=== PATIENT | female | born 1965 | race African-American/Black ===

== ENCOUNTER → 2016-06-22 | Outpatient (CLI) | payer MEDICAID, OTHER ==
[~2016-06-22] MED LIST: ALBU8I INH; ALBUAER3 INH; AMBI5TAB PO; CARI350T20 PO; CYMB30CA PO; CYMB60CA PO; DIOV160T60 PO; GABA800T PO; HYDR-3535 PO; HYDR-3583 PO; HYDR12.57 PO; IBUP-232 PO; IBUP600 PO; METO25 PO; PRIL20CA PO; PROP80TA PO; ST JTAB PO; TIZA4 PO; VALS1TAB65 PO
[2016-06-22 12:42] LABS: AUTOMATED NEUTROPHIL # 5.8 TH/MM3 (1.8-7.7); BASOPHIL # 0.1 TH/MM3 (0-0.2); BASOPHIL % 0.7 % (0.0-2.0); EOSINOPHIL # 0.3 TH/MM3 (0-0.4); HEMATOCRIT 37.2 % (35.0-46.0); HEMO FLAGS DIFF FINAL; LYMPH % 34.5 % (9.0-44.0); LYMPHOCYTE # 3.8 TH/MM3 (1.0-4.8); MEAN CELL VOLUME 85.2 FL (80.0-100.0); MEAN CORPUSCULAR HEMOGLOBIN 27.9 PG (27.0-34.0); MEAN CORPUSCULAR HGB CONC 32.8 % (32.0-36.0); MONO % 8.4 % (0.0-8.0); NEUT % 53.4 % (16.0-70.0); PLATELET COUNT 249 TH/MM3 (150-450); RED BLOOD COUNT 4.37 MIL/MM3 (4.00-5.30); RED CELL DISTRIBUTION WIDTH 14.7 % (11.6-17.2); WHITE BLOOD COUNT 10.9 TH/MM3 (4.0-11.0)
[2016-06-22 13:01] LABS: BLOOD, URINE NEG (NEG); COMMENT (UR) CULT NOT INDICATED; CULTURE IF INDICATED CULT NOT INDICATED; GLUCOSE,URINE NEG (NEG); KETONE, URINE NEG (NEG); MUCUS URINE FEW /lpf (OCC); NITRITE,URINE NEG (NEG); PH, URINE 5.5 (5.0-8.5); SQUAMOUS EPITHELIAL CELL URINE 1 /hpf (0-5); URINE COLOR YELLOW (YELLW/STRAW)
--- NOTE | 2016-06-23 23:38 | EKG ---
Date Performed: 06/22/2016 Time Performed: 12:30:44 PTAGE: 51 years EKG: Sinus rhythm MINIMAL VOLTAGE CRITERIA FOR LVH, CONSIDER NORMAL VARIANT NONSPECIFIC T-WAVE ABNORMALITY BORDERLINE ECG NO PREVIOUS TRACING DOCTOR: Myla Aguilera Interpretating Date/Time 06/23/2016 23:34:48
== END ==
LOC: CPRE 11:43
PROVIDERS: ATTEND Orthopaedic Surgery Orthopaedic Surgery of the Spine
DX: Z01.810 Encounter for preprocedural cardiovascular examination (principal); Z01.812 Encounter for preprocedural laboratory examination; Z01.818 Encounter for other preprocedural examination; M50.33 Other cervical disc degeneration, cervicothoracic region; R94.31 Abnormal electrocardiogram [ECG] [EKG]
CPT/HCPCS: 36415; 81001; 85025; 93005

== ENCOUNTER → 2016-08-01 | Outpatient (CLI) | payer MEDICAID ==
[~2016-08-01] MED LIST changes: -ALBU8I INH; -CYMB30CA PO; -DIOV160T60 PO; -IBUP-232 PO; -IBUP600 PO; -METO25 PO; -PRIL20CA PO; -ST JTAB PO; -TIZA4 PO
[2016-08-01 12:22] LABS: AUTOMATED NEUTROPHIL # 5.4 TH/MM3 (1.8-7.7); BASOPHIL # 0.1 TH/MM3 (0-0.2); BASOPHIL % 0.8 % (0.0-2.0); EOSINOPHIL # 0.2 TH/MM3 (0-0.4); EOSINOPHIL % 2.3 % (0.0-4.0); HEMATOCRIT 37.7 % (35.0-46.0); HEMO FLAGS DIFF FINAL; LYMPH % 38.7 % (9.0-44.0); LYMPHOCYTE # 4.1 TH/MM3 (1.0-4.8); MEAN CELL VOLUME 85.9 FL (80.0-100.0); MEAN CORPUSCULAR HEMOGLOBIN 27.8 PG (27.0-34.0); MEAN CORPUSCULAR HGB CONC 32.4 % (32.0-36.0); MONO % 7.1 % (0.0-8.0); NEUT % 51.1 % (16.0-70.0); PLATELET COUNT 255 TH/MM3 (150-450); RED BLOOD COUNT 4.38 MIL/MM3 (4.00-5.30); WHITE BLOOD COUNT 10.6 TH/MM3 (4.0-11.0)
[2016-08-01 13:01] LABS: BACTERIA, URINE RARE /hpf; BLOOD, URINE NEG (NEG); GLUCOSE,URINE NEG (NEG); HYALINE CAST, URINE 1 /lpf (RARE); KETONE, URINE NEG (NEG); MUCUS URINE FEW /lpf (OCC); NITRITE,URINE NEG (NEG); PH, URINE 5.5 (5.0-8.5); SQUAMOUS EPITHELIAL CELL URINE 13 /hpf (0-5); URINE COLOR YELLOW (YELLW/STRAW)
[2016-08-01 13:08] LABS: COMMENT (UR) CULT NOT INDICATED; CULTURE IF INDICATED CULT NOT INDICATED
== END ==
LOC: CPRE 11:22
PROVIDERS: ATTEND Orthopaedic Surgery Orthopaedic Surgery of the Spine
DX: Z01.812 Encounter for preprocedural laboratory examination (principal); Z01.818 Encounter for other preprocedural examination; M50.33 Other cervical disc degeneration, cervicothoracic region
CPT/HCPCS: 36415; 81001; 85025

== ENCOUNTER 2016-08-10 06:39 | Inpatient (IN) | payer MEDICAID, OTHER ==
[2016-08-10] VITALS (9 sets, daily range): BP systolic 102–112; BP diastolic 62–74; PULSE 60–112; RESP 14–18; TEMP 98–98.6; O2SAT 97–100
[~2016-08-10] VITALS: Ht 165.1 cm; Wt 87.4 kg
[~2016-08-10 06:39] MED LIST changes: -HYDR-3583 PO
[2016-08-10] MEDS ORDERED: BUPIVACAINE/EPINEPHRINE 0.25% 50 ML VIAL ONE (07:15)
[2016-08-10] MEDS ORDERED: GENTAMICIN SULFATE 80 MG/2 ML VIAL ONE (07:16)
[2016-08-10] MEDS ORDERED: VANCOMYCIN 1000 MG/NS 250 ML (for <70 kg) IV SCH ×2 (07:30)
[2016-08-10] MEDS ORDERED: ceFAZolin 2 GM PREMIX 50 ML IV SCH (07:30)
[2016-08-10] MEDS ORDERED: POVIDONE IODINE 5% (ANTISEPSIS KIT) 4 APPLICATIONS EACH NARE PRN (07:30)
[2016-08-10] MEDS ORDERED: INSULIN HUMAN REGULAR 1,000 UNITS/10 ML VIAL SQ PRN (07:30)
[2016-08-10] MEDS: POVIDONE IODINE 7.5% SCRUB 118 ML BOTTLE TOPICAL SCH (07:30)
[2016-08-10] MEDS ORDERED: SODIUM CHLORID 0.9% 500 ML IV PRN (07:30)
[2016-08-10] MEDS ORDERED: CHLORHEXIDINE GLUCONATE 2 % 1 PACK (2 CLOTHS) TOPICAL PRN (07:30)
[2016-08-10] MEDS ORDERED: LACTATED RINGER'S 1000 ML IV PRN (07:30)
[2016-08-10] MEDS ORDERED: METOPROLOL TARTRATE 25 MG TAB PO PRN (07:30)
[2016-08-10] MEDS ORDERED: CLINDAMYCIN 600 MG/NS 100 ML IV SCH ×2 (07:45)
[2016-08-10] MEDS ORDERED: SODIUM CHLORIDE 0.9% INJ 100 ML ONE (07:52)
[2016-08-10] MEDS ORDERED: DEXAMETHASONE SOD PHOS 4 MG/ML VIAL ONE ×2 (08:18→15:08)
[2016-08-10] MEDS ORDERED: MIDAZOLAM HCL 2 MG/2 ML VIAL ONE ×2 (08:18→12:12)
[2016-08-10] MEDS ORDERED: ACETAMINOPHEN 1000 MG/100 ML VIAL IV ONE (08:18)
[2016-08-10] MEDS ORDERED: FAMOTIDINE 20 MG/2 ML VIAL ONE (08:19)
[2016-08-10] MEDS ORDERED: fentaNYL CITRATE 250 MCG/5 ML AMP ONE ×2 (08:19→12:12)
[2016-08-10] MEDS ORDERED: ZOLPIDEM TARTRATE 5 MG TAB PO PRN (10:30)
[2016-08-10] MEDS ORDERED: ALBUTEROL SULFATE 90 MCG/ACT HFA 18 GM INHALER INH PRN (10:45)
[2016-08-10] MEDS ORDERED: LACTATED RINGER'S 1000 ML INJ 1,000 ML IV SCH (10:47)
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
[2016-08-10] MEDS ORDERED: HYDR-3583 PO (10:58)
[2016-08-10] MEDS ORDERED: ACETAMINOPHEN/HYDROcodone 325 MG/10 MG TAB PO PRN ×2 (11:00)
[2016-08-10] MEDS ORDERED: BISACODYL 10 MG SUPP RECTAL PRN (11:00)
[2016-08-10] MEDS ORDERED: MORPHINE SULFATE 4 MG/ML INJ IV PUSH PRN (11:00)
[2016-08-10] MEDS ORDERED: ONDANSETRON HCL 4 MG/2 ML VIAL IV PRN (11:00)
[2016-08-10] MEDS ORDERED: SODIUM CHLORIDE 0.9% FLUSH 5 ML FLUSH IVF PRN (11:00)
[2016-08-10] MEDS ORDERED: Post-op Orders (for Pharmacy) MISC XX ONE (11:00)
--- NOTE | 2016-08-10 11:25 | HHI.PR ---
Immediate Post Op Note Procedure Date: Aug 10, 2016 Pre Op Diagnosis: C4-5 Large Extruded HNP Post Op Diagnosis: Same Surgeon: Gary Hunter MD Boatswains Mate(s): Staff Procedure: C4-5 AIF,ACC,ASI Findings: C4-5 large extruded hnp Complications: None Estimated blood loss: 25cc for entire case Anesthesia: General Drains: None Patient to: PACU Patient Condition: Good Implant/Devices: SEE IMPLANT LOG (if applicable) Date/Time of Procedure: SEE SURGICAL CARE RECORD Gary Hunter MD Aug 10, 2016 11:25
[2016-08-10] MEDS ORDERED: *LABETALOL HCL 100 MG/20 ML VIAL PERIprocedural Use ONLY ONE (11:40)
[2016-08-10] MEDS ORDERED: *ENALAPRILAT 1.25 MG/ML VIAL PERIprocedural Use ONLY ONE (11:40)
[2016-08-10] MEDS ORDERED: NALOXONE HCL 0.4 MG/ML AMP ONE (11:42)
[2016-08-10] MEDS ORDERED: DO NOT ADM ANY ANTICOAGULANT DRUGS PRN ×2 (11:45→13:30)
[2016-08-10] MEDS ORDERED: SUCCINYLCHOLINE CHLORIDE 200 MG/10 ML VIAL ONE (11:46)
[2016-08-10] MEDS ORDERED: PROPOFOL 1000 MG/100 ML INJ 100 ML ONE ×3 (11:48→21:31)
[2016-08-10] MEDS ORDERED: NORMOSOL R INJ 1,000 ML IV ONE (12:00)
[2016-08-10] MEDS ORDERED: ePHEDrine/NS 25 MG/5 ML SYR IV ONE (12:00)
[2016-08-10] MEDS ORDERED: PROPOFOL 200 MG/20 ML AMP IV ONE (12:00)
[2016-08-10] MEDS ORDERED: NEOSTIGMINE 3 MG/3 ML SYR IV ONE (12:00)
[2016-08-10] MEDS ORDERED: LACTATED RINGER'S 1000 ML INJ 2,000 ML IV ONE (12:00)
[2016-08-10] MEDS ORDERED: ONDANSETRON HCL 4 MG/2 ML VIAL IV PUSH ONE (12:00)
[2016-08-10] MEDS ORDERED: CLINDAMYCIN PHOS 600 MG/4 ML VIAL ONE (12:55)
[2016-08-10] MEDS: CLINDAMYCIN INJ 600 MG in SODIUM CHLORIDE 0.9% INJ 100 ML IV SCH ×2 (13:00→21:20)
[2016-08-10 14:02] LABS: BLOOD GAS BASE EXCESS 0.5 mmol/L (-2-2); BLOOD GAS CARBOXYHEMOGLOBIN 1.2 % (0-4); BLOOD GAS HCO3 25 mmol/L (22-26); BLOOD GAS METHEMOGLOBIN 0.9 % (0-2); BLOOD GAS O2 HGB SATURATION 96 % (90-100); BLOOD GAS OXYGEN CONTENT 14.9 Vol % (12.0-20.0); BLOOD GAS PCO2 42 mmHg (38-42); BLOOD GAS PO2 120 mmHg (61-120); BLOOD GAS TOTAL HGB 10.9 G/DL (12.0-16.0); CRITICAL VALUE NO; OXYGEN DEVICE VENTILATOR; TEMP CORR TO 98.6
[2016-08-10 14:03] LABS: DRAW SITE LT RADIAL; FIO2 45 %; NUMBER OF ARTERIAL PUNCTURES 1; STAT YES; ULNAR PULSE PRESENT; VENT SETTINGS AC14/500/PEEP5
--- NOTE | 2016-08-10 14:53 | PD.CONS ---
[facility] Service Critical Care Medicine Consult Requested By Dr. Medina Reason for Consult post-operative respiratory insufficiency Primary Care Physician Non-Staff History of Present Illness This is a 51yF who presented for elective C4/5 ACDF. Intra-operatively, she was a moderately difficult intubation with a GlideScope. Post-operatively, she was extubated and taken to PACU where she had acute respiratory distress and hypoxia. It was noted that she had an enlarging anterior neck mass. decision was made to emergently proceed back to OR for re-exploration. LMA was emergently placed due to known difficult airway and once in the OR, fiberoptic through LMA with placement of 7.0 ett. larynx noted to be edematous by anesthesiologist. 150cc hematoma drained from anterior neck and SHAHEEN drain left in the anterior neck. The patient remained intubated and was taken to PACU sedated. When I evaluated the patient in PACU, she was sedated and intubated. The remainder of the history was obtained by the bedside RN and Dr. Medina. Review of Systems ROS Limitations: Clinical Condition, Intubated, Altered Mental Status Past Family Social History Allergies: Coded Allergies: Penicillin (Verified Allergy, Severe, HIVES, SOB, 08/10/16) Darvocet-N 100 (Verified Adverse Reaction, Intermediate, Nausea/Vomiting, 08/10/16) Dilaudid (Verified Adverse Reaction, Intermediate, Itching, 08/10/16) Flexeril (Verified Adverse Reaction, Intermediate, Itching, 08/10/16) Ultram (Verified Adverse Reaction, Intermediate, ITCHING, 08/10/16) Past Medical History Hypertension Asthma TIA in 2006 Back pain Neck pain GERD Depression Past Surgical History delivery Reported Medications Valsartan HCTZ Lortab Soma Albuterol Propranolol Duloxetine Gabapentin Active Ordered Medications See MAR Family History Reviewed in the chart and found to be noncontributory to her acute illness. The patient is unable to provide additional information. Social History 2.5 pack per day smoker 10 years. Quit 1 week ago. Physical Exam Vital Signs Vital Signs Date Time Temp Pulse Resp B/P Pulse Ox O2 Delivery O2 Flow Rate FiO2 08/10/16 13:33 98 50 08/10/16 11:49 61 12 194/106 95 Nasal Cannula 4 08/10/16 11:45 79 12 155/100 83 Nasal Cannula 4 08/10/16 11:30 64 12 155/100 90 Nasal Cannula 4 08/10/16 11:25 97.7 59 12 112/64 91 Nasal Cannula 4 08/10/16 07:25 98.1 60 18 111/74 97 Physical Exam GENERAL: Middle-aged female, sitting in bed, intubated, sedated. HEENT: Normocephalic. Atraumatic. Pupils equal, round, reactive, conjugate. Mucous members are moist. Mild amount of oropharyngeal edema. NECK: 7.[address] There is an incision over the anterior neck with a SHAHEEN drain with a mild amount of sanguinous output. Anterior neck is supple. C- collar is in place CHEST: Equal chest rise. Clear to auscultation bilaterally. CARDIOVASCULAR: Normal rate, regular rhythm. No appreciable murmurs. ABDOMEN: Soft, obese, nontender, nondistended. No guarding. MUSCULOSKELETAL: Distal pulses 2+. No peripheral edema. NEUROLOGICAL: RASS -3. Briskly purposeful. Does not follow commands. Sedated under anesthesia. Laboratory Laboratory Tests Test 08/10/16 13:55 Blood Gas Puncture Site LT RADIAL Blood Gas Patient Temperature 98.6 Blood Gas HCO3 25 Blood Gas Base Excess 0.5 Blood Gas Oxygen Saturation 96 Arterial Blood pH 7.39 Arterial Blood Partial 42 Pressure CO2 Arterial Blood Partial 120 Pressure O2 Arterial Blood Oxygen Content 14.9 Arterial Blood 1.2 Carboxyhemoglobin Arterial Blood Methemoglobin 0.9 Blood Gas Hemoglobin 10.9 Oxygen Delivery Device VENTILATOR Blood Gas Ventilator Setting AC14/500/PEEP5 Blood Gas Inspired Oxygen 45 Assessment and Plan Assessment and Plan Assessment: This is a 51-year-old female postop day 0 from a C4 5 ACDF course complicated by postoperative respiratory insufficiency requiring emergent re- intubation and re-exploration of the anterior neck for anterior hematoma. She remains critically ill with high concern for airway compromise. Active Problems: Anterior neck hematoma s/p decompression and re-exploration Post-operative pulmonary insufficiency Pharyngeal Edema Laryngeal edema Plan: -- admit to ICU -- head of bed at 60 - 90 degrees at all times -- d/c mivf -- lasix 20mg iv x 1 tonight -- serial decadron q6h -- goal RASS -3. deeply sedated for airway concern. -- will re-evaluate airway in the morning. -- NPO This patient remains critically ill with one or more organ systems which are or may become a threat to life. I have spent in excess of 42 minutes discontinuously in the care and management of this patient. This time is exclusive of procedures, and includes, but is not limited to, evaluation of the patient, review of the medical record, discussions with family, consultants, nursing staff, or respiratory therapy, and documentation in the medical record. Code Status Full Code Jaspreet Lopez MD Aug 10, 2016 14:53
--- NOTE | 2016-08-10 14:56 | RADRPT ---
EXAM DATE/TIME: 08/10/2016 15:05 [facility] COMPARISON: CHEST SINGLE AP, May 07, 2013, 16:31. INDICATIONS : Evaluate central line placement MEDICAL HISTORY : None. SURGICAL HISTORY : None. ENCOUNTER: Initial ACUITY: 1 day PAIN SCORE: Non-responsive. LOCATION: Bilateral chest FINDINGS: Right basilar streakiness is noted consistent with atelectasis and/or infiltrate. Clinical correlati on is recommended. The left lung is clear. The endotracheal tube is in good position 2-3 cm above t he jeremy. The heart is stable. CONCLUSION: 1. Right basilar streakiness consistent with atelectasis and/or infiltrate. Clinical correlation is recommended. 2. Endotracheal tube in good position 2-3 cm above the jeremy. Evan Gonzalez MD on August 10, 2016 at 14:52 Board Certified Radiologist. This report was verified electronically.
[2016-08-10] MEDS: DEXAMETHASONE SOD PHOS 4 MG/ML VIAL IV SCH ×2 (15:00→21:21)
--- NOTE | 2016-08-10 15:07 | RADRPT ---
EXAM DATE/TIME: 08/10/2016 10:48 [facility] COMPARISON: No previous studies available for comparison. INDICATIONS : Cervical 4-5 fusion MEDICAL HISTORY : None. SURGICAL HISTORY : None. ENCOUNTER: Initial ACUITY: 1 day PAIN SCORE: Non-responsive. LOCATION: Bilateral C-spine. FINDINGS: Surgical screws traverse the bodies of C4 and C5 with a plate placed anteriorly and evidence for ante rior fusion. CONCLUSION: Intact immediate postsurgical changes. Saundra Moss MD on August 10, 2016 at 15:05 Board Certified Radiologist. This report was verified electronically.
[2016-08-10] MEDS: fentaNYL DRIP 250 ML IV SCH (15:43)
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
[2016-08-10] MEDS: GABAPENTIN 400 MG CAP PO SCH (17:15)
[2016-08-10] MEDS: SODIUM CHLORIDE 0.9% FLUSH 5 ML FLUSH IVF SCH (21:00)
[2016-08-10] MEDS ORDERED: PROPRANOLOL HCL 80 MG TAB PO SCH (21:00)
[2016-08-10] MEDS ORDERED: FUROSEMIDE 20 MG/2 ML VIAL IV PUSH ONE (21:00)
[2016-08-11] VITALS (18 sets, daily range): BP systolic 87–121; BP diastolic 54–75; PULSE 64–88; RESP 14–28; TEMP 97.2–98.4; O2SAT 92–100
[2016-08-11] MEDS: CLINDAMYCIN INJ 600 MG in SODIUM CHLORIDE 0.9% INJ 100 ML IV SCH (02:40)
[2016-08-11] MEDS: DEXAMETHASONE SOD PHOS 4 MG/ML VIAL IV SCH ×4 (02:41→21:20)
[2016-08-11] MEDS: PROPOFOL 1000 MG/100 ML IV SCH ×3 (02:41→10:55)
[2016-08-11] MEDS: fentaNYL DRIP 250 ML IV SCH ×2 (04:05→10:53)
[2016-08-11 04:35] LABS: HEMATOCRIT 30.2 % (35.0-46.0); MEAN CELL VOLUME 84.6 FL (80.0-100.0); MEAN CORPUSCULAR HEMOGLOBIN 28.1 PG (27.0-34.0); MEAN CORPUSCULAR HGB CONC 33.3 % (32.0-36.0); PLATELET COUNT 211 TH/MM3 (150-450); RED BLOOD COUNT 3.57 MIL/MM3 (4.00-5.30); REVIEW FLAG FINAL; WHITE BLOOD COUNT 16.4 TH/MM3 (4.0-11.0)
[2016-08-11 04:59] LABS: BICARBONATE 26.6 MEQ/L (21.0-32.0); POTASSIUM 3.2 MEQ/L (3.5-5.1)
[2016-08-11] MEDS ORDERED: FUROSEMIDE 40 MG/4 ML VIAL IV PUSH ONE (07:00)
[2016-08-11] MEDS: POVIDONE IODINE 7.5% SCRUB 118 ML BOTTLE TOPICAL SCH (07:30)
--- NOTE | 2016-08-11 07:51 | PD.ORT.PN ---
Subjective Subjective Remarks Patient is intubated and sedated. Nursing staff state when sedation is diminished she does respond to commands and mobilize all 4 limbs appropriately. Otherwise, uneventful evening. Nursing staff had no other concerns. Objective Vitals Vital Signs Date Time Temp Pulse Resp B/P Pulse Ox O2 Delivery O2 Flow Rate FiO2 08/11/16 06:00 73 08/11/16 04:10 100 40 08/11/16 04:00 76 08/11/16 04:00 40 08/11/16 04:00 97.8 76 14 96/55 100 08/11/16 02:00 80 08/11/16 00:30 100 40 08/11/16 00:00 82 08/11/16 00:00 40 08/11/16 00:00 97.7 82 14 121/69 100 08/10/16 22:00 86 08/10/16 20:30 100 40 08/10/16 20:00 40 08/10/16 20:00 98.6 112 14 112/71 100 08/10/16 20:00 112 08/10/16 19:00 100 Mechanical Ventilator 40 08/10/16 18:00 85 08/10/16 16:15 Mechanical Ventilator 40 08/10/16 16:15 82 08/10/16 16:15 98.0 82 14 102/62 100 08/10/16 16:05 99 100 08/10/16 15:45 83 14 104/69 98 Mechanical Ventilator 45 08/10/16 15:42 98 45 08/10/16 15:30 82 14 93/66 98 Mechanical Ventilator 45 08/10/16 15:30 45 08/10/16 15:15 78 14 102/72 98 Mechanical Ventilator 45 08/10/16 15:00 98.0 82 14 126/81 98 Mechanical Ventilator 45 08/10/16 15:00 98.0 08/10/16 14:45 84 14 122/80 98 Mechanical Ventilator 45 08/10/16 14:30 45 08/10/16 14:30 75 14 126/80 98 Mechanical Ventilator 45 08/10/16 14:30 97.2 08/10/16 14:15 97.2 81 14 123/71 98 Mechanical Ventilator 45 08/10/16 14:00 74 14 109/71 97 Mechanical Ventilator 45 08/10/16 13:45 77 14 113/64 98 Mechanical Ventilator 45 08/10/16 13:33 98 50 08/10/16 13:25 45 08/10/16 13:25 96.2 08/10/16 13:23 96.2 86 14 108/71 98 Mechanical Ventilator 45 08/10/16 11:49 61 12 194/106 95 Nasal Cannula 4 08/10/16 11:45 79 12 155/100 83 Nasal Cannula 4 08/10/16 11:30 64 12 155/100 90 Nasal Cannula 4 08/10/16 11:25 97.7 59 12 112/64 91 Nasal Cannula 4 I/O 08/10/16 08/10/16 08/10/16 08/11/16 08/11/16 08/11/16 07:00 15:00 23:00 07:00 15:00 23:00 Intake Total 2100 ml 403 ml 426 ml Output Total 750 ml 640 ml 360 ml Balance 1350 ml -237 ml 66 ml Intake IV Total 50 ml 403 ml 426 ml Other 2050 ml Output Urine Total 575 ml 600 ml 350 ml Stool Total 0 ml 0 ml Drainage Total 40 ml 10 ml Estimated Blood Loss 175 ml Result Diagram: 08/11/16 0402 08/11/16 0402 Procedures ACDF C45, rsxn central HNP Objective Remarks Patient in bed Intubated/sedated VSS C/S Dressing and drain in place, mild soft tissue swelling, no erythema Unable to perform motor and sensory exam +nvi UE and LE bilat Assessment & Plan Ortho Post Op Day #: 1 Problem List: (1) Cervical spinal stenosis (2) Cervical cord compression with myelopathy Assessment and Plan pod#1 s/p ACDF C45, bone graft pod#1 immediate return to OR, Intubation and Exploration small postoperative cervical hematoma with laryngeal spasm D/C SHAHEEN drain Ok to redress cervical incision Planned extubation later today. Cervical collar coldfusion. Ok to remove for dressing changes / hygiene. Decadron 6mg followed by 4mg. Will follow. Hold discharge until pulmonary function stable. If stable, d/c likely Sat or Sun. Krystyna March Aug 11, 2016 07:51
[2016-08-11] MEDS ORDERED: POTASSIUM CHLOR 40 MEQ PREMIX 100 ML IV PRN ×2 (08:00)
[2016-08-11] MEDS ORDERED: MAGNESIUM SULFATE INJ 2 GM in SODIUM CHLORIDE 0.9% INJ 96 ML IV PRN (08:00)
[2016-08-11] MEDS ORDERED: POTASSIUM PHOSPHATE MONOBASIC 500 MG TAB PO PRN (08:00)
[2016-08-11] MEDS ORDERED: MAGNESIUM SULFATE INJ 4 GM in SODIUM CHLORIDE 0.9% INJ 92 ML IV PRN (08:00)
[2016-08-11] MEDS ORDERED: POTASSIUM CHLOR 20 MEQ PREMIX 100 ML IV PRN ×2 (08:00)
[2016-08-11] MEDS ORDERED: SODIUM PHOSPHATE INJ 30 MMOL in SODIUM CHLOR 0.9% 250 ML INJ 240 ML IV PRN (08:00)
[2016-08-11] MEDS ORDERED: POTASSIUM PHOSPHATE MONOBASIC 500 MG TAB PO/TUBE PRN (08:00)
[2016-08-11] MEDS ORDERED: MAGNESIUM OXIDE 400 MG TAB PO PRN (08:00)
[2016-08-11] MEDS ORDERED: POTASSIUM PHOSPHATE INJ 30 MMOL in SODIUM CHLOR 0.9% 250 ML INJ 250 ML IV PRN (08:00)
[2016-08-11] MEDS ORDERED: VALSARTAN 160 MG TAB PO SCH (09:00)
[2016-08-11] MEDS: MULTIVITAMINS/MINERALS THERAPEUTIC TAB PO SCH ×2 (09:00→21:20)
[2016-08-11] MEDS: DULoxetine HCl DR 60 MG CAP PO SCH (09:00)
[2016-08-11] MEDS ORDERED: HYDROCHLOROTHIAZIDE 12.5 MG CAP PO SCH (09:00)
[2016-08-11] MEDS: SODIUM CHLORIDE 0.9% FLUSH 5 ML FLUSH IVF SCH ×2 (09:00→21:00)
[2016-08-11] MEDS: GABAPENTIN 400 MG CAP PO SCH ×3 (09:00→17:28)
[2016-08-11] MEDS: DOCUSATE SODIUM 100 MG CAP PO SCH ×2 (09:00→21:20)
[2016-08-11] MEDS ORDERED: CHLORHEXIDINE GLUCONATE 2 % 1 PACK (2 CLOTHS)(extra cloths) TOPICAL PRN (11:15)
[2016-08-11] MEDS ORDERED: DEXMEDETOMIDINE INJ 50 ML IV SCH (11:45)
--- NOTE | 2016-08-11 11:49 | HHI.CCPN ---
Subjective Remarks/Hospital Course Hospital Course: This is a 51yF who presented for elective C4/5 ACDF. Intra-operatively, she was a moderately difficult intubation with a GlideScope. Post-operatively, she was extubated and taken to PACU where she had acute respiratory distress and hypoxia. It was noted that she had an enlarging anterior neck mass. decision was made to emergently proceed back to OR for re-exploration. LMA was emergently placed due to known difficult airway and once in the OR, fiberoptic through LMA with placement of 7.0 ett. larynx noted to be edematous by anesthesiologist. 150cc hematoma drained from anterior neck and SHAHEEN drain left in the anterior neck. The patient remained intubated and was taken to PACU sedated. When I evaluated the patient in PACU, she was sedated and intubated. The remainder of the history was obtained by the bedside RN and Dr. Medina. Subjective: 08/11: very awake and alert, despite high dose sedation. has large cuff leak this morning. too agitated for extubation, and before 24h post-reintubation. Objective Vital Signs Date Time Temp Pulse Resp B/P Pulse Ox O2 Delivery O2 Flow Rate FiO2 08/11/16 08:29 97 40 08/11/16 08:00 98.4 88 14 114/75 08/11/16 07:45 Mechanical Ventilator 08/10/16 11:49 4 Intake and Output 08/10/16 08/10/16 08/11/16 08:00 16:00 00:00 Intake Total 2100 ml 403 ml Output Total 900 ml 490 ml Balance 1200 ml -87 ml Result Diagram: 08/11/16 0402 08/11/16 0402 Other Results Laboratory Tests Test 08/10/16 13:55 Blood Gas Puncture Site LT RADIAL Blood Gas Patient Temperature 98.6 Blood Gas HCO3 25 mmol/L (22-26) Blood Gas Base Excess 0.5 mmol/L (-2-2) Blood Gas Oxygen Saturation 96 % (90-100) Arterial Blood pH 7.39 (7.380-7.420) Arterial Blood Partial 42 mmHg (38-42) Pressure CO2 Arterial Blood Partial 120 mmHg Pressure O2 (61-120) Arterial Blood Oxygen Content 14.9 Vol % (12.0-20.0) Arterial Blood 1.2 % (0-4) Carboxyhemoglobin Arterial Blood Methemoglobin 0.9 % (0-2) Blood Gas Hemoglobin 10.9 G/DL (12.0-16.0) Oxygen Delivery Device VENTILATOR Blood Gas Ventilator Setting AC14/500/PEEP5 Blood Gas Inspired Oxygen 45 % Objective Remarks GENERAL: Middle-aged female, sitting in bed, intubated, sedated but still with breakthrough agitation HEENT: Normocephalic. Atraumatic. Pupils equal, round, reactive, conjugate. Mucous members are moist. Mild amount of oropharyngeal edema. NECK: 7.[address] There is an incision over the anterior neck with a SHAHEEN drain with a minimal amount of sanguinous output. Anterior neck is supple. C-collar is in place CHEST: Equal chest rise. Clear to auscultation bilaterally. CARDIOVASCULAR: Normal rate, regular rhythm. No appreciable murmurs. ABDOMEN: Soft, obese, nontender, nondistended. No guarding. MUSCULOSKELETAL: Distal pulses 2+. No peripheral edema. NEUROLOGICAL: RASS +1. follows commands x 4. A/P Assessment and Plan Assessment: This is a 51-year-old female postop day 1 from a C4 5 ACDF course complicated by postoperative respiratory insufficiency requiring emergent re- intubation and re-exploration of the anterior neck for anterior hematoma. I cannot extubate her safely this morning on my eval due to her agitation. We will start Precedex and wean off propofol and fentanyl and attempt goal RASS 0. She does have a large cuff leak and on physical exam her anterior neck and hypopharynx have minimal edema, and significantly reduced compared to yesterday. If her agitation is under control, will proceed with extubation. I have talked with Dr. Yeh and we will have trauma surgery on surgical back- up for airway if she has persistent airway compromise. Plan: 1. Anterior neck hematoma s/p decompression and re-exploration -- edema much improved -- lasix 40mg iv x 1 -- continue c-collar. 2. Post-operative pulmonary insufficiency -- SBT this morning. -- cuff leak this morning -- will pursue trial of extubation if her delirium is under control. 3. Agitated Delirium -- start precedex -- wean off propofol, fentanyl -- goal RASS 0. -- may need to add antipsychotic to assist with delirium. 4. Pharyngeal and Laryngeal Edema -- lasix as above -- HOB at 60 - 90 degrees -- scheduled decadron q6h. Dispo: remain in ICU. Jaspreet Lopez MD Aug 11, 2016 11:49
[2016-08-11] MEDS: DEXMEDETOMIDINE 200 MCG in NS 50 ML IV SCH ×2 (13:29→14:37)
[2016-08-11] MEDS ORDERED: ONDANSETRON HCL 4 MG/2 ML VIAL IV PUSH PRN (17:15)
[2016-08-11] MEDS ORDERED: HYDROmorphone HCL PF 1 MG/ML VIAL IV PUSH PRN (17:15)
[2016-08-11] MEDS: CARISOPRODOL 350 MG TAB PO PRN (17:28)
[2016-08-11] MEDS: MUPIROCIN 2% OINT 1 APPLIC/GM SYR NASAL SCH (21:20)
[2016-08-11] MEDS: FAMOTIDINE 20 MG TAB PO SCH (21:20)
[2016-08-11] MEDS: ACETAMINOPHEN 325 MG TAB PO SCH (23:53)
[2016-08-12] VITALS (10 sets, daily range): BP systolic 109–129; BP diastolic 57–71; PULSE 83–98; RESP 14–20; TEMP 96.1–97.8; O2SAT 94–100
[2016-08-12] MEDS: DEXAMETHASONE SOD PHOS 4 MG/ML VIAL IV SCH (03:55)
[2016-08-12] MEDS: CHLORHEXIDINE GLUCONATE 2 % 1 PACK (2 CLOTHS)(taper/protocol) TOPICAL SCH (04:00)
[2016-08-12] MEDS: ACETAMINOPHEN 325 MG TAB PO SCH ×3 (06:31→17:53)
[2016-08-12] MEDS: POVIDONE IODINE 7.5% SCRUB 118 ML BOTTLE TOPICAL SCH (07:30)
[2016-08-12] MEDS: FAMOTIDINE 20 MG TAB PO SCH ×2 (08:07→21:09)
[2016-08-12] MEDS: MULTIVITAMINS/MINERALS THERAPEUTIC TAB PO SCH ×2 (08:07→21:09)
[2016-08-12] MEDS: MUPIROCIN 2% OINT 1 APPLIC/GM SYR NASAL SCH ×2 (08:07→21:09)
[2016-08-12] MEDS: DOCUSATE SODIUM 100 MG CAP PO SCH ×2 (08:07→21:09)
[2016-08-12] MEDS: SODIUM CHLORIDE 0.9% FLUSH 5 ML FLUSH IVF SCH ×2 (08:07→21:00)
[2016-08-12] MEDS: DULoxetine HCl DR 60 MG CAP PO SCH (08:07)
[2016-08-12] MEDS: GABAPENTIN 400 MG CAP PO SCH ×3 (08:07→17:53)
--- NOTE | 2016-08-12 08:55 | PD.ORT.PN ---
Subjective Subjective Remarks Patient was extubated yesterday. Doing much better today. Throat very sore. Little hoarseness. Arms a 'little sore' but no other complaints. No radiating leg symptoms. No other concerns. Questions about discharge. Objective Vitals Vital Signs Date Time Temp Pulse Resp B/P Pulse Ox O2 Delivery O2 Flow Rate FiO2 08/12/16 08:00 87 08/12/16 08:00 97.8 87 14 129/67 97 08/12/16 07:00 97 Nasal Cannula 4.00 08/12/16 06:00 83 08/12/16 04:00 87 08/12/16 04:00 97.7 87 16 116/69 99 08/12/16 02:00 88 08/12/16 00:00 97.7 86 16 110/63 100 08/12/16 00:00 86 08/11/16 22:00 82 08/11/16 21:52 97 Nasal Cannula 08/11/16 20:00 80 08/11/16 20:00 97.8 80 20 111/59 96 08/11/16 19:00 96 Nasal Cannula 4.00 08/11/16 18:00 80 08/11/16 16:00 64 08/11/16 16:00 98.2 64 26 110/58 95 08/11/16 16:00 40 08/11/16 15:55 92 Nasal Cannula 6 08/11/16 14:00 64 08/11/16 12:42 100 100 08/11/16 12:00 97.2 70 28 87/54 100 08/11/16 12:00 70 08/11/16 12:00 40 08/11/16 10:00 73 I/O 08/11/16 08/11/16 08/11/16 08/12/16 08/12/16 08/12/16 07:00 15:00 23:00 07:00 15:00 23:00 Intake Total 426 ml 570 ml 400 ml 100 ml Output Total 360 ml 437 ml 300 ml 350 ml Balance 66 ml 133 ml 100 ml -250 ml Intake Oral 400 ml 100 ml IV Total 426 ml 570 ml Output Urine Total 350 ml 425 ml 300 ml 350 ml Stool Total 0 ml 0 ml Drainage Total 10 ml 12 ml Result Diagram: 08/11/16 0402 08/12/16 0426 Procedures ACDF C45, rsxn central HNP Objective Remarks Sitting up in bed Extubated, in cervicalc collar VSS C/S Dressing c/d/i, drain removed and site clean, mild soft tissue swelling, no erythema +motor biceps, +sens, +nvi LE - + motor at bilat, +nvi Assessment & Plan Ortho Post Op Day #: 2 Problem List: (1) Cervical spinal stenosis (2) Cervical cord compression with myelopathy Assessment and Plan pod#2 s/p ACDF C45, bone graft pod#2 immediate return to OR, Intubation and Exploration small postoperative cervical hematoma with laryngeal spasm Patient extubated yesterday. Throat sore but stable. O2 levels improved. Planning to transfer to 7th floor today. Dry dressing changes daily. Cervical collar shut off worker. Finish Decadron taper. . Hold discharge until pulmonary function stable. If stable, plan on d/c home tomorrow Krystyna Macrh Aug 12, 2016 08:55
[2016-08-12] MEDS: HYDROCHLOROTHIAZIDE 12.5 MG CAP PO SCH (09:32)
[2016-08-12] MEDS: CARISOPRODOL 350 MG TAB PO PRN (21:12)
[2016-08-13] VITALS: BP 100/64; PULSE 87; RESP 20; TEMP 97.9; O2SAT 98
[2016-08-13] MEDS: ACETAMINOPHEN 325 MG TAB PO SCH ×2 (00:28→05:46)
[2016-08-13] MEDS: CHLORHEXIDINE GLUCONATE 2 % 1 PACK (2 CLOTHS)(taper/protocol) TOPICAL SCH (04:00)
[2016-08-13] MEDS: CARISOPRODOL 350 MG TAB PO PRN (05:52)
[2016-08-13] MEDS: MUPIROCIN 2% OINT 1 APPLIC/GM SYR NASAL SCH (07:48)
[2016-08-13] MEDS: FAMOTIDINE 20 MG TAB PO SCH (07:48)
[2016-08-13] MEDS: GABAPENTIN 400 MG CAP PO SCH (07:48)
[2016-08-13] MEDS: SODIUM CHLORIDE 0.9% FLUSH 5 ML FLUSH IVF SCH (07:49)
[2016-08-13] MEDS: DULoxetine HCl DR 60 MG CAP PO SCH (07:49)
[2016-08-13] MEDS: DOCUSATE SODIUM 100 MG CAP PO SCH (07:49)
[2016-08-13] MEDS: HYDROCHLOROTHIAZIDE 12.5 MG CAP PO SCH (07:49)
[2016-08-13] MEDS: MULTIVITAMINS/MINERALS THERAPEUTIC TAB PO SCH (07:49)
[2016-08-13 07:58] VITALS: BP 118/75; PULSE 82; RESP 17; TEMP 97.4; O2SAT 96
--- NOTE | 2016-08-13 08:21 | PD.ORT.PN ---
Subjective Subjective Remarks She continues to improve. Throat a little sore. Hands feeling better. Swalling soft foods easily. No other complaints. ready to d/c home. No concerns of CP, SOB or abd pain. Objective Vitals Vital Signs Date Time Temp Pulse Resp B/P Pulse Ox O2 Delivery O2 Flow Rate FiO2 08/13/16 07:58 97.4 82 17 118/75 96 08/13/16 00:00 97.9 87 20 100/64 98 08/12/16 20:20 98 Nasal Cannula 2.00 08/12/16 20:00 97.6 87 20 121/71 97 08/12/16 16:00 96.1 92 16 120/57 96 08/12/16 12:00 96.3 98 16 109/57 94 08/12/16 11:14 97 Nasal Cannula 2.00 I/O 08/12/16 08/12/16 08/12/16 08/13/16 08/13/16 08/13/16 07:00 15:00 23:00 07:00 15:00 23:00 Intake Total 100 ml 240 ml 960 ml 240 ml Output Total 350 ml Balance -250 ml 240 ml 960 ml 240 ml Intake Oral 100 ml 240 ml 960 ml 240 ml IV Total 0 ml 0 ml Output Urine Total 350 ml Stool Total 0 ml # Voids 2 1 3 # Bowel Movements 0 Result Diagram: 08/11/16 0402 08/12/16 0426 Procedures ACDF C45, rsxn central HNP Objective Remarks Sitting up in bed In cervical collar VSS C/S Dressing c/d/i, mild soft tissue swelling, no erythema +motor biceps, +sens, +nvi LE - + motor at bilat, +nvi Assessment & Plan Ortho Post Op Day #: 3 Problem List: (1) Cervical spinal stenosis (2) Cervical cord compression with myelopathy Assessment and Plan pod#3 s/p ACDF C45, bone graft pod#3 immediate return to OR, Intubation and Exploration small postoperative cervical hematoma with laryngeal spasm Patient continues to improve. Ortho stable. Ok to d/c home today. No HHC needed. Dry dressing changes daily. Cervical collar consulting psychiatrist. PO pain meds as needed. F/U in 2 weeks as scheduled. Krystyna March Aug 13, 2016 08:21
--- NOTE | 2016-08-13 08:32 | HHI.DCPOC ---
Discharge Care Plan Diagnosis: (1) Cervical spinal stenosis (2) Cervical cord compression with myelopathy Your Health Problems Are: Incision/Drains Swelling Goals to Promote Your Health * To prevent worsening of your condition and complications * To maintain your health at the optimal level Directions to Meet Your Goals Take your medications as prescribed Follow your dietary instruction Follow activity as directed Keep your appointments as scheduled Take your immunizations and boosters as scheduled If your symptoms worsen call your PCP, if no PCP go to Urgent Care Center or Emergency Room Smoking is Dangerous to Your Health. Avoid second hand smoke Call the 24-hour hour crisis hotline for domestic abuse at Krystyna March Aug 13, 2016 08:32
[2016-08-13] MEDS ORDERED: VALSARTAN 160 MG TAB PO SCH (09:00)
[2016-08-13 09:27] VITALS: O2SAT 93
--- NOTE | 2016-08-13 17:44 | MP ---
cc: GARY MURPHY M.D. DATE OF SURGERY: 08/10/2016. PREOPERATIVE DIAGNOSIS: C4-5 extruded herniated nucleus pulposis. POSTOPERATIVE DIAGNOSIS: C4-5 extruded herniated nucleus pulposis. OPERATIVE PROCEDURE PERFORMED: C4-5 anterior body fusion; C4-5 Spina ACC anterior cervical cage; C4-5 SpineNet Ricardo anterior spinal instrumentation. SURGEON: Gary Murphy MD. DISTRIBUTION COLLECTION OPERATOR: Staff. SPECIMENS: None. ESTIMATED BLOOD LOSS: 25 cc for the entire case. COMPLICATIONS: None. ANESTHESIA: General. DRAINS: None. CONDITION: Stable. PLAN OF ACTIVITY: Per orders. DESCRIPTION OF THE PROCEDURE IN DETAIL: Dr. Lambert Murphy and myself were co-surgeons on this surgical procedure. Dr. Lambert Murphy performed the neurodecompressive procedure in that he performed a C4-5 anterior cervical diskectomy and anterior decompression using the operative microscope and a left anterior iliac crest bone grafting. I performed the orthopedic fusion and stabilization procedure, which is well-described my operative note. The end plates at C4-5 were prepared for fusion. The hyaline cartilage at the end plates was removed using curettes and burs. A 610 x 12 ACC cage was placed in the interspace. Anterior iliac crest autogenous bone graft was placed under fluoroscopic guidance for interbody fusion. Anterior osteophytes were removed multiple types of rongeurs and a bur. A 23 mm length SpineNet Rauscher anterior spinal instrumentation was used for anterior spinal instrumentation. Two pins were used to hold the plate in appropriate position. This was confirmed under fluoroscopic guidance in the AP and lateral planes. Two screws were used in the vertebral bodies of C4 and C5; these screws were 14 mm in length, 4.0 mm in diameter fixed angle screws. Each screw head was appropriately locked to the plate. The wound was irrigated with copious amounts of sterile saline antibiotic solution. The wound itself was dry. The wound was closed in routine manner with multiple interrupted 3-0 Vicryl sutures. The skin was approximated with running subcuticular 4-0 Vicryl suture. Sterile dressings were applied. The patient placed in a Kelly cervical orthosis. The patient tolerated the procedure well and arrived in the recovery room in stable and satisfactory condition. MD LUCIANO Ruiz/TERESA /11:19 AM /5:32 PM
--- NOTE | 2016-08-13 19:30 | MP ---
cc: ABDULKADIR MURPHY M.D. DATE OF SURGERY August 10, 2016 PREOPERATIVE DIAGNOSES 1. Acute airway edema, postoperative hematoma. 2. Status post C4-5 ACDF. POSTOPERATIVE DIAGNOSES 1. Acute airway edema, postoperative hematoma. 2. Status post C4-5 ACDF. PROCEDURE Neck, anterior cervical spine exploration, evacuation of hematoma, irrigation and debridement. SURGEON Cameron Murphy. POLISHER BALANCE SCREWHEAD Staff. ANESTHESIA General. ESTIMATED BLOOD LOSS 150 mL. DRAINS One. COMPLICATIONS None. PLAN OF ACTIVITY Per orders. INDICATIONS A 51-year-old female earlier today underwent C4-5 anterior cervical diskectomy and fusion. The patient had a total blood loss of 25 mL. At the time of closure the wound itself was dry. In the recovery room, the patient developed an acute airway obstruction. The patient was maintained in airway by Dr. Medina of the Department of Anesthesia with LMA. In the operating room, he was able to use a bronchoscopy and was able to get the bronchoscope into the trachea past the larynx and the vocal cords. The patient then was exchanged with an endotracheal tube. The patient was well oxidized throughout the entire episode. And always maintained a normal blood pressure and heart rate. With this the patient was then positioned on operating room table. The previous dressings were removed. The neck and anterior chest were prepped and draped in usual sterile manner. The incision was reopened. The patient found to have a mild hematoma. This was evacuated. Bipolar anticoagulation was used to coagulate the oozing areas of the longus colli. No obvious bleeders were seen. The wound was irrigated with 1000 mL of sterile saline antibiotic solution. It was closed over 10-Somali Matthew drain. Also a Surgiflo was then used at the area of the incision to help prevent any further easy bleeding. The wound was closed in multiple layers using 3-0 Vicryl suture. Skin approximated with running subcuticular 4-0 Vicryl suture. Dermabond placed over the skin incision. Sterile dressings were applied. The patient placed in [place] cervical orthosis. Of note before the surgery and through the bronchoscope it was noted that the patient was found to have a significant amount of airway edema, much more so than "massive effect" from the hematoma. This was commented by the anesthesiologist. The patient tolerated the procedure well and arrived in the recovery room in stable and satisfactory condition. MD ZAFAR Ruiz /1:11 PM /7:11 PM
== END 2016-08-13 11:43 | disposition home or self-care (01) | DRG 472 ==
LOC: HSDC 06:39 → HSDI 10:51 → N03A 16:13 → N07B 08-12 08:54
PROVIDERS: ADMIT Orthopaedic Surgery Orthopaedic Surgery of the Spine; ATTEND Orthopaedic Surgery Orthopaedic Surgery of the Spine
PROC: 0RB30ZZ Excision of Cervical Vertebral Disc, Open Approach (ICD-10-PCS; 2016-08-10)
PROC: 0QB30ZZ Excision of Left Pelvic Bone, Open Approach (ICD-10-PCS; 2016-08-10)
PROC: 0JC40ZZ Extirpation of Matter from Right Neck Subcutaneous Tissue and Fascia, Open Approach (ICD-10-PCS; 2016-08-10)
PROC: 0RG10A0 Fusion of Cervical Vertebral Joint with Interbody Fusion Device, Anterior Approach, Anterior Column, Open Approach (ICD-10-PCS; principal; 2016-08-10 08:26)
DX: M50.121 Cervical disc disorder at C4-C5 level with radiculopathy (principal); M50.021 Cervical disc disorder at C4-C5 level with myelopathy; J38.4 Edema of larynx; M96.841 Postprocedural hematoma of a musculoskeletal structure following other procedure; M48.02 Spinal stenosis, cervical region; R09.02 Hypoxemia; J45.909 Unspecified asthma, uncomplicated; I10 Essential (primary) hypertension; K21.9 Gastro-esophageal reflux disease without esophagitis; J39.2 Other diseases of pharynx; J38.5 Laryngeal spasm; R41.0 Disorientation, unspecified; R49.0 Dysphonia; F32.9 Major depressive disorder, single episode, unspecified; F17.210 Nicotine dependence, cigarettes, uncomplicated; Y83.8 Other surgical procedures as the cause of abnormal reaction of the patient, or of later complication, without mention of misadventure at the time of the procedure; Y92.234 Operating room of hospital as the place of occurrence of the external cause; Z86.73 Personal history of transient ischemic attack (TIA), and cerebral infarction without residual deficits
CPT/HCPCS: 36600; 71010; 72040; 76000; 80048; 82805; 84132; 85027; 87641; 94002; 94003; 94150; 94640; 94667; 94668; C1713; J0131; J0330; J1100; J1580; J1940; J2250; J2310; J2405; J2710; J3010; J3370; J3480; J7050; J7120

== ENCOUNTER 2017-03-17 09:23 | Emergency (ER) | payer SELFPAY ==
[~2017-03-17] VITALS: Ht 165.1 cm; Wt 85.0 kg
[~2017-03-17 09:23] MED LIST changes: +HYDR-3583 PO
[2017-03-17 09:24] VITALS: BP 142/72; PULSE 92; RESP 18; TEMP 98; O2SAT 99
[2017-03-17] MEDS ORDERED: AZITHROMYCIN PWD FOR SUSP 1 GM PACKET PO ONE (10:45)
--- NOTE | 2017-03-17 10:53 | PD ---
HPI . STD check Chief Complaint: Abdominal Pain Time Seen by Provider: 09:30 Travel History International Travel<30 days: No Contact w/Intl Traveler<30days: No Traveled to known affect area: No History of Present Illness HPI 51-year-old female presents emergency department for evaluation of potential STD. Patient states that her significant other has penile discharge. She states that they have been together for 2 years and she has not had sex with any other person in that time period. She states that he developed penile discharge and stated that he had had been in the past but it was a male yeast infection. Patient states she just wants to know what's going on, denies any itching, vaginal discharge, pelvic pain, abdominal pain, nausea, vomiting, diarrhea. Patient's significant other presents for evaluation simultaneously. PFSH Past Medical History Arthritis: Yes (RHEUMATOID) Asthma: Yes Autoimmune Disease: Yes Blood Disorders: No Anxiety: Yes Cancer: No Cardiovascular Problems: No Cerebrovascular Accident: Yes (TIA) Diabetes: No Diminished Hearing: No Endocrine: No Fibromyalgia: Yes Gastrointestinal Disorders: Yes GERD: Yes Genitourinary: No Headaches: Yes Hepatitis: No Hiatal Hernia: No Hypertension: Yes Immune Disorder: No Implanted Vascular Access Dvce: No Musculoskeletal: Yes (BACK PAIN) Neurologic: Yes (NUMBNESS IN R HAND AND LEG, 2 MINI STROKES) Psychiatric: Yes Reproductive: No Respiratory: Yes (ASTHMA ) Migraines: Yes Thyroid Disease: No PNEUMOCCOCAL Vaccine (Year): 1 ?: Not : 5 Para: 2 Miscarriage: 3 Past Surgical History Abdominal Surgery: No AICD: No Body Medical Devices: NONE Cardiac Surgery: No Section: Yes (X 2) Ear Surgery: No Endocrine Surgery: No Eye Surgery: No Genitourinary Surgery: No Gynecologic Surgery: Yes (2 C SECTION) Joint Replacement: No Oral Surgery: No Pacemaker: No Thoracic Surgery: No Other Surgery: Yes Social History Alcohol Use: No Tobacco Use: Yes (1 PP week) Substance Use: No Allergies-Medications (Allergen,Severity, Reaction): Coded Allergies: penicillin G (Unverified Allergy, Severe, HIVES, SOB, 12/05/16) acetaminophen (Unverified Adverse Reaction, Intermediate, Nausea/Vomiting , 12/05/16) cyclobenzaprine (Unverified Adverse Reaction, Intermediate, Itching, ) hydromorphone (Unverified Adverse Reaction, Intermediate, Itching, 12/05/16 ) propoxyphene (Unverified Adverse Reaction, Intermediate, Nausea/Vomiting, 12/05/16) tramadol (Unverified Adverse Reaction, Intermediate, ITCHING, 12/05/16) *MDRO Multi-Drug Resistant Organism (Verified Adverse Reaction, Unknown, ) 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 Reported Meds & Prescriptions Reported Meds & Active Scripts Active Hydrocodone-Acetaminophen 10-325 mg Tab 1 Tab PO Q4H PRN Reported Ambien (Zolpidem Tartrate) 5 Mg Tab 5 Mg PO HS PRN Gabapentin 800 Mg Tab 800 Mg PO TID Proair Hfa 8.5 GM Inh (Albuterol Sulfate) 90 Mcg/Act Aer 2 Puff INH Q4-6H PRN 108 mcg/actuation Cymbalta DR (Duloxetine HCl) 60 Mg Capdr 60 Mg PO DAILY Propranolol (Propranolol HCl) 80 Mg Tab 80 Mg PO HS Hydrochlorothiazide 12.5 Mg Cap 12.5 Mg PO DAILY Valsartan 160 Mg Tab 160 Mg PO DAILY Review of Systems Except as stated in HPI: all other systems reviewed are Neg Physical Exam Narrative GENERAL: Well-nourished, well-developed 51-year-old female patient in no acute distress. [id number]. SKIN: Focused skin assessment warm/dry. HEAD: Normocephalic. Atraumatic. EYES: No scleral icterus. No injection or drainage. NECK: Supple, trachea midline. No JVD or lymphadenopathy. CARDIOVASCULAR: Regular rate and rhythm without murmurs, gallops, or rubs. RESPIRATORY: Breath sounds equal bilaterally. No accessory muscle use. GENITOURINARY: Normal external genitalia without lesions or erythema. Vaginal vault with small amount of milky frothy drainage, no blood noted. Cervical os was closed. Cervical motion tenderness noted. Uterus nontender and nonenlarged. Bilateral adnexa nontender without masses. GASTROINTESTINAL: Abdomen soft, non-tender, nondistended. MUSCULOSKELETAL: No cyanosis, or edema. BACK: Nontender without obvious deformity. No CVA tenderness. Data Data Last Documented VS Vital Signs Date Time Temp Pulse Resp B/P (MAP) Pulse Ox O2 Delivery O2 Flow Rate FiO2 03/17/17 09:24 98.0 92 18 142/72 (95) 99 Orders Orders Gc And Chlamydia Pcr (03/17/17 09:38) Wet Prep Profile (03/17/17 09:38) Urinalysis - C+S If Indicated (03/17/17 09:38) Azithromycin Powd Pack (Zithromax Powd P (03/17/17 10:45) Gentamicin Inj (Gentamicin Inj) (03/17/17 11:00) Ed Discharge Order (03/17/17 10:54) Urine Culture (03/17/17 10:40) Labs Laboratory Tests Test 03/17/17 10:40 Urine Color YELLOW Urine Turbidity HAZY Urine pH 6.5 Urine Specific [place] 1.021 Urine Protein TRACE mg/dL Urine Glucose (UA) NEG mg/dL Urine Ketones NEG mg/dL Urine Occult Blood MOD Urine Nitrite NEG Urine Bilirubin NEG Urine Urobilinogen LESS THAN 2.0 MG/DL Urine Leukocyte Esterase LARGE Urine RBC 121 /hpf Urine WBC /hpf Urine WBC Clumps MANY Urine Squamous Epithelial Cells 7 /hpf Urine Amorphous Sediment MOD Urine Bacteria OCC /hpf Urine Mucus FEW /lpf Microscopic Urinalysis Comment CULTURE INDICATED Clue Cells (Wet Prep) PRESENT Vaginal Trichomonas (Wet Prep) NONE SEEN Vaginal Yeast (Wet Prep) NONE SEEN MDM Medical Decision Making Medical Screen Exam Complete: Yes Emergency Medical Condition: Yes Differential Diagnosis Differential diagnoses include but not limited to physiological discharge, anxiety, screen for STD, STD Narrative Course 51-year-old female presents emergency department for evaluation due to her significant other having penile discharge. Patient denies any physiological complaints but once reassurance. Pelvic exam performed and milky frothy discharge noted. Mild cervical motion tenderness. Cultures, GC and chlamydia and wet prep obtained and sent to lab. Patient treated empirically with azithromycin and gentamicin IM due to her penicillin allergy. Patient states she had penicillin as a teenager and her throat closed up. Patient is discharged home with instructions to follow-up with her primary care or the health department. Patient states she has an appointment with her primary care for next week. Diagnosis Primary Impression: Screen for sexually transmitted diseases Referrals: Primary Care Physician Patient Instructions: General Instructions, Safe Sex (ED) Additional Instructions: Please return to emergency department if your symptoms return or worsen. Follow up with your primary care provider, philip your appointment for next week Disposition: DISCHARGE HOME Condition: Stable MeiKrystyna Mar 17, 2017 10:53
[2017-03-17] MEDS ORDERED: GENTAMICIN SULFATE 80 MG/2 ML VIAL IM ONE ×2 (11:00→12:00)
[2017-03-17 11:08] LABS: BACTERIA, URINE OCC /hpf; BLOOD, URINE MOD (NEG); GLUCOSE,URINE NEG (NEG); KETONE, URINE NEG (NEG); MUCUS URINE FEW /lpf (OCC); NITRITE,URINE NEG (NEG); PH, URINE 6.5 (5.0-8.5); SQUAMOUS EPITHELIAL CELL URINE 7 /hpf (0-5); URINE COLOR YELLOW (YELLW/STRAW)
[2017-03-17 11:09] LABS: COMMENT (UR) CULTURE INDICATED; CULTURE IF INDICATED CULTURE INDICATED
[2017-03-17 12:46] LABS: CHLAMYDIA PCR NOT DETECTED (NOT DETECT); NEISSERIA PCR DETECTED (NOT DETECT)
== END 2017-03-17 12:13 | disposition home or self-care (01) ==
LOC: NEPD 09:23
DX: Z11.3 Encounter for screening for infections with a predominantly sexual mode of transmission (principal); B96.89 Other specified bacterial agents as the cause of diseases classified elsewhere; M06.9 Rheumatoid arthritis, unspecified; J45.909 Unspecified asthma, uncomplicated; F41.9 Anxiety disorder, unspecified; M79.7 Fibromyalgia; K21.9 Gastro-esophageal reflux disease without esophagitis; I10 Essential (primary) hypertension; Z86.73 Personal history of transient ischemic attack (TIA), and cerebral infarction without residual deficits
CPT/HCPCS: 81001; 87086; 87210; 87491; 87591; 96372; 99285; J1580

== ENCOUNTER 2017-05-28 22:46 | Emergency (ER) | payer SELFPAY ==
[~2017-05-28 22:46] MED LIST changes: -CARI350T20 PO; -HYDR-3535 PO
[2017-05-28 22:50] VITALS: BP 143/86; PULSE 78; RESP 16; TEMP 98.2; O2SAT 100
[2017-05-28] MEDS ORDERED: RESP: ALBUTEROL 2.5 MG/IPRATROPIUM 0.5 MG NEB (SCH) NEB ONE (23:45)
[2017-05-28] MEDS ORDERED: IBUPROFEN 600 MG TAB PO ONE (23:45)
[2017-05-29 00:09] VITALS: O2SAT 100
[2017-05-29] MEDS ORDERED: FAMOTIDINE 20 MG TAB PO ONE (00:45)
[2017-05-29] MEDS ORDERED: ALUMINUM/MAGNESIUM/SIMETH 30 ML CUP PO ONE (00:45)
--- NOTE | 2017-05-29 01:29 | PD ---
HPI . Cold/flu symptoms Chief Complaint: Cold / Flu Symptoms Time Seen by Provider: 23:33 Travel History International Travel<30 days: No Contact w/Intl Traveler<30days: No Traveled to known affect area: No History of Present Illness HPI 52-year-old female notes having mild cough for the past 2-3 days, but started having shaking chills and body aches tonight. Patient has positive ill contacts with flu and also recent upper respiratory infections. Patient denies any production of cough, any documented fever. Denies any leg pain or swelling , or any decrease in exercise tolerance of late. PFSH Past Medical History Narrative Medical Past medical history reviewed Arthritis: Yes (RHEUMATOID) Asthma: Yes Autoimmune Disease: Yes Blood Disorders: No Anxiety: Yes Cancer: No Cardiovascular Problems: No Cerebrovascular Accident: Yes (TIA) Diabetes: No Diminished Hearing: No Endocrine: No Fibromyalgia: Yes Gastrointestinal Disorders: Yes GERD: Yes Genitourinary: No Headaches: Yes Hepatitis: No Hiatal Hernia: No Hypertension: Yes Immune Disorder: No Implanted Vascular Access Dvce: No Musculoskeletal: Yes (BACK PAIN) Neurologic: Yes (NUMBNESS IN R HAND AND LEG, 2 MINI STROKES) Psychiatric: Yes Reproductive: No Respiratory: Yes (ASTHMA ) Migraines: Yes Thyroid Disease: No PNEUMOCCOCAL Vaccine (Year): 1 ?: Not : 5 Para: 2 Miscarriage: 3 Past Surgical History Abdominal Surgery: No AICD: No Body Medical Devices: NONE Cardiac Surgery: No Section: Yes (X 2) Ear Surgery: No Endocrine Surgery: No Eye Surgery: No Genitourinary Surgery: No Gynecologic Surgery: Yes (2 C SECTION) Joint Replacement: No Oral Surgery: No Pacemaker: No Thoracic Surgery: No Other Surgery: Yes (CERVICAL SPINE SURG.) Social History Alcohol Use: No Tobacco Use: Yes (4 CIGS A DAY) Substance Use: No Allergies-Medications (Allergen,Severity, Reaction): Coded Allergies: penicillin G (Unverified Allergy, Severe, HIVES, SOB, 05/28/17) acetaminophen (Unverified Adverse Reaction, Intermediate, Nausea/Vomiting , 05/28/17) cyclobenzaprine (Unverified Adverse Reaction, Intermediate, Itching, ) hydromorphone (Unverified Adverse Reaction, Intermediate, Itching, 05/28/17) propoxyphene (Unverified Adverse Reaction, Intermediate, Nausea/Vomiting, 05/28/17) tramadol (Unverified Adverse Reaction, Intermediate, ITCHING, 05/28/17) *MDRO Multi-Drug Resistant Organism (Verified Adverse Reaction, Unknown, ) 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 Reported Meds & Prescriptions Reported Meds & Active Scripts Active Hydrocodone-Acetaminophen 10-325 mg Tab 1 Tab PO Q4H PRN Reported Ambien (Zolpidem Tartrate) 5 Mg Tab 5 Mg PO HS PRN Gabapentin 800 Mg Tab 800 Mg PO TID Proair Hfa 8.5 GM Inh (Albuterol Sulfate) 90 Mcg/Act Aer 2 Puff INH Q4-6H PRN 108 mcg/actuation Cymbalta DR (Duloxetine HCl) 60 Mg Capdr 60 Mg PO DAILY Propranolol (Propranolol HCl) 80 Mg Tab 80 Mg PO HS Hydrochlorothiazide 12.5 Mg Cap 12.5 Mg PO DAILY Valsartan 160 Mg Tab 160 Mg PO DAILY Narrative Medication Allergies and medications reviewed Review of Systems Except as stated in HPI: all other systems reviewed are Neg General / Constitutional: Positive: Chills, No: Fever Eyes: No: Visual changes HENT: No: Headaches Cardiovascular: No: Chest Pain or Discomfort Respiratory: Positive: Cough, No: Shortness of Breath, Wheezing, Sneezing, Orthopnea, Hemoptysis, Night Sweats, Pleuritic Pain Gastrointestinal: No: Abdominal Pain Genitourinary: No: Dysuria Musculoskeletal: No: Pain Skin: No Rash Neurologic: No: Weakness Psychiatric: No: Depression Endocrine: No: Polydipsia Hematologic/Lymphatic: No: Easy Bruising Physical Exam Narrative GENERAL: Awake and alert oriented 3 no acute distress SKIN: Warm and dry. Color is normal diaphoresis cyanosis or pallor HEAD: Atraumatic. Normocephalic. EYES: Pupils equal and round. No scleral icterus. No injection or drainage. ENT: No nasal bleeding or discharge. Mucous membranes pink and moist. NECK: Trachea midline. No JVD. CARDIOVASCULAR: Regular rate and rhythm. S1-S2 no murmurs rubs or gallops RESPIRATORY: No accessory muscle use. Clear to auscultation. Breath sounds equal bilaterally. Mild prolonged respiratory phase with forced exhalation/ cough only. No rhonchi GASTROINTESTINAL: Abdomen soft, non-tender, nondistended. Hepatic and splenic margins not palpable. MUSCULOSKELETAL: Extremities without clubbing, cyanosis, or edema. No obvious deformities. NEUROLOGICAL: Awake and alert. No obvious cranial nerve deficits. Motor grossly within normal limits. Five out of 5 muscle strength in the arms and legs. Normal speech. PSYCHIATRIC: Appropriate mood and affect; insight and judgment normal. Data Data Last Documented VS Vital Signs Date Time Temp Pulse Resp B/P (MAP) Pulse Ox O2 Delivery O2 Flow Rate FiO2 05/29/17 00:09 100 21 05/28/17 22:50 98.2 78 16 143/86 (105) Orders Orders Influenzae A/B Antigen (05/28/17 23:33) Ibuprofen (Motrin) (05/28/17 23:45) Albuterol-Ipratropium Neb (Duoneb Neb) (05/28/17 23:45) Al-Mag Hy-Si 40-40-4 Mg/Ml Liq (Mag-Al P (05/29/17 00:45) Famotidine (Pepcid) (05/29/17 00:45) MDM Medical Decision Making Medical Screen Exam Complete: Yes Emergency Medical Condition: Yes Medical Record Reviewed: Yes Differential Diagnosis Influenza, upper respiratory infection, bronchitis Narrative Course Patient improved with oral anti-inflammatories and nebulizer treatment. Influenza test negative Diagnosis Primary Impression: Upper respiratory infection Qualified Codes: J06.9 - Acute upper respiratory infection, unspecified Patient Instructions: General Instructions, Upper Respiratory Infection (ED) Additional Instructions: Tylenol/Motrin for aches/chills as directed. Albuterol inhaler 2 puffs every 4 hours for cough/wheezing as needed. Medrol dose leticia as prescribed. Follow-up with your doctor. Return for worsening Scripts Methylprednisolone Dosepak (Medrol Dosepak) 4 Mg Dspk 4 MG PO DIRECTED, #1 DSPK 0 Refills Per Pharmacist direction Prov: Erick Neri MD 05/29/17 Disposition: 01 DISCHARGE HOME Condition: Stable Erick Neri MD May 29, 2017 01:29
[2017-05-29] MEDS ORDERED: predniSONE 20 MG TAB PO ONE (01:30)
[2017-05-29] MEDS ORDERED: MEDR4PAK PO (01:39)
== END 2017-05-29 01:50 | disposition home or self-care (01) ==
LOC: NEPC 22:46
DX: J06.9 Acute upper respiratory infection, unspecified (principal); F17.210 Nicotine dependence, cigarettes, uncomplicated; J45.909 Unspecified asthma, uncomplicated; I10 Essential (primary) hypertension; M79.7 Fibromyalgia
CPT/HCPCS: 87804; 94664; 99283; J7512

== ENCOUNTER 2017-06-28 08:19 | Observation (INO) | payer SELFPAY ==
[~2017-06-28] VITALS: Ht 172.7 cm; Wt 80.0 kg
[2017-06-28] VITALS (9 sets, daily range): BP systolic 101–129; BP diastolic 72–86; PULSE 82–112; RESP 18–20; TEMP 98–98.9; O2SAT 98–100
[~2017-06-28 08:19] MED LIST changes: +MEDR4PAK PO
[2017-06-28] MEDS ORDERED: GADODIAMIDE PF 287 MG/ML 20 ML VIAL (for RAD MRI) IVCONTRAST ONE (08:20)
[2017-06-28] MEDS ORDERED: SODIUM CHLOR 0.9% 1000 ML INJ 1,000 ML IV SCH (08:20)
[2017-06-28] MEDS ORDERED: IOHEXOL 350 MG/ML 10 ML VIAL (for RAD DIAG) IVCONTRAST ONE (08:20)
[2017-06-28] MEDS ORDERED: diphenhydrAMINE HCL 50 MG/ML VIAL IV PUSH ONE (08:30)
[2017-06-28] MEDS ORDERED: LORazepam 2 MG/ML VIAL IV PUSH ONE ×2 (08:30→15:30)
[2017-06-28] MEDS ORDERED: SODIUM CHLORIDE 0.9% FLUSH 10 ML FLUSH IV FLUSH PRN ×2 (08:30→16:30)
[2017-06-28] MEDS ORDERED: HYDROmorphone HCL PF 2 MG/ML VIAL IV PUSH ONE ×2 (08:45→11:45)
[2017-06-28 08:54] LABS: PROTHROMBIN TIME - PATIENT 10.4 SEC (9.8-11.6)
[2017-06-28 08:56] LABS: AUTOMATED NEUTROPHIL # 8.8 TH/MM3 (1.8-7.7); BASOPHIL # 0.1 TH/MM3 (0-0.2); BASOPHIL % 0.8 % (0.0-2.0); EOSINOPHIL # 0.2 TH/MM3 (0-0.4); EOSINOPHIL % 1.2 % (0.0-4.0); HEMATOCRIT 41.1 % (35.0-46.0); LYMPH % 38.2 % (9.0-44.0); LYMPHOCYTE # 6.2 TH/MM3 (1.0-4.8); MEAN CELL VOLUME 82.1 FL (80.0-100.0); MEAN CORPUSCULAR HEMOGLOBIN 27.9 PG (27.0-34.0); MEAN PLATELET VOLUME 7.7 FL (7.0-11.0); MONO % 5.6 % (0.0-8.0); MONOCYTE # 0.9 TH/MM3 (0-0.9); NEUT % 54.2 % (16.0-70.0); PLATELET COUNT 352 TH/MM3 (150-450); RED BLOOD COUNT 5.01 MIL/MM3 (4.00-5.30); RED CELL DISTRIBUTION WIDTH 14.7 % (11.6-17.2); WHITE BLOOD COUNT 16.3 TH/MM3 (4.0-11.0)
[2017-06-28 09:00] LABS: ALBUMIN 4.4 GM/DL (3.4-5.0); ALT (GPT) 28 U/L (10-53); AST (GOT) 25 U/L (15-37); BICARBONATE 28.2 MEQ/L (21.0-32.0); BLOOD UREA NITROGEN 11 MG/DL (7-18); CHLORIDE 97 MEQ/L (98-107); CREATININE 0.91 MG/DL (0.50-1.00); GLOMERULAR FILTRATION RATE 79 ML/MIN (>89); GLUCOSE,RANDOM 86 MG/DL (74-106); SODIUM (NA) 139 MEQ/L (136-145)
--- NOTE | 2017-06-28 09:06 | RADRPT ---
EXAM DATE/TIME: 06/28/2017 08:32 [facility] COMPARISON: CHEST SINGLE AP, August 10, 2016, 15:05. INDICATIONS : Syncope MEDICAL HISTORY : TIA SURGICAL HISTORY : None. ENCOUNTER: Initial ACUITY: 1 day PAIN SCORE: Non-responsive. LOCATION: chest FINDINGS: A single view of the chest demonstrates the lungs to be symmetrically aerated without evidence of mas s, infiltrate or effusion. The cardiomediastinal contours are unremarkable. Osseous structures are intact. CONCLUSION: No acute disease. No significant change has occurred. Henry Moore MD on June 28, 2017 at 9:04 Board Certified Radiologist. This report was verified electronically.
[2017-06-28 09:10] LABS: ALKALINE PHOSPHATASE 125 U/L (45-117); TOTAL BILIRUBIN ADULT 0.4 MG/DL (0.2-1.0); TOTAL PROTEIN 8.5 GM/DL (6.4-8.2); TROPONIN I LESS THAN 0.02 NG/ML (0.02-0.05)
--- NOTE | 2017-06-28 09:10 | RADRPT ---
EXAM DATE/TIME: 06/28/2017 08:36 [facility] COMPARISON: No previous studies available for comparison. INDICATIONS : Altered mental status. Painful right arm contractions. RADIATION DOSE: 42.99 CTDIvol (mGy) MEDICAL HISTORY : Cerebrovascular disease. Hypertension. SURGICAL HISTORY : None. ENCOUNTER: Initial ACUITY: 1 day PAIN SCALE: 7/10 LOCATION: Left arm TECHNIQUE: Volumetric scanning of the cervical spine was performed. Multiplanar reconstructions in the sagittal, coronal and oblique axial planes were performed. Using automated exposure control and adjustment o f the mA and/or kV according to patient size, radiation dose was kept as low as reasonably achievable to obtain optimal diagnostic quality images. DICOM format image data is available electronically f or review and comparison. FINDINGS: VERTEBRAE: Normal vertebral body height. There is evidence of previous anterior cervical fusion C4-5. There are primary bony degenerative changes involving the lower cervical spine especially at C6-7. There is dis c space narrowing at C6-7. No acute bony fractures. The hardware is grossly intact. ALIGNMENT: No evidence of subluxation. C2-C3: The bony spinal canal is normal in size. No evidence of disc bulge or herniation. The neural forami na are bilaterally patent. C3-C4: The bony spinal canal is normal in size. No evidence of disc bulge or herniation. The neural forami na are bilaterally patent. Facet arthritis on the right side. C4-C5: The bony spinal canal is normal in size. No evidence of disc bulge or herniation. The neural forami na are bilaterally patent. C5-C6: The bony spinal canal is normal in size. No evidence of disc bulge or herniation. The neural forami na are bilaterally patent. C6-C7: The bony spinal canal is normal in size. No evidence of disc bulge or herniation. The neural forami na are bilaterally patent. C7-T1: The bony spinal canal is normal in size. No evidence of disc bulge or herniation. The neural forami na are bilaterally patent. CONCLUSION: 1. No acute bony fracture. 2. Anterior cervical fusion at C4-5 3. Primary degenerative changes with disc space narrowing at C6-7 Henry Moore MD on June 28, 2017 at 9:06 Board Certified Radiologist. This report was verified electronically.
[2017-06-28 09:34] LABS: BASOPHILS 1 % (0-2); LYMPHOCYTES 38 % (9-44); MONOCYTES 3 % (0-8); POLYS (SEG NEUTROPHILS) 55 % (16-70)
[2017-06-28] MEDS ORDERED: DIAZEPAM 5 MG TAB PO ONE ×2 (09:45→11:45)
[2017-06-28] MEDS ORDERED: POTA10SO12 PO (10:00)
[2017-06-28] MEDS ORDERED: AMLO5 PO (10:00)
[2017-06-28] MEDS ORDERED: DULO-39 PO (10:00)
[2017-06-28] MEDS ORDERED: ALBU6.7H INH (10:00)
[2017-06-28] MEDS ORDERED: ALPR.5 PO (10:00)
[2017-06-28] MEDS ORDERED: SOMA250T PO (10:00)
[2017-06-28] MEDS ORDERED: HYDR-3288 PO (10:00)
[2017-06-28] MEDS ORDERED: ASPI-516 CHEW (10:00)
--- NOTE | 2017-06-28 10:20 | PD ---
HPI Chief Complaint: Altered Mental Status Time Seen by Provider: 08:20 Travel History International Travel<30 days: No Contact w/Intl Traveler<30days: No Traveled to known affect area: No History of Present Illness HPI Patient is a 52-year-old female presents emergency department with sudden onset left upper extremity and left lower extremity contractures and pain approximately an hour prior to presentation. Patient is a cocaine user and has had CVAs in the past but she has never had these symptoms before. She states the pain is severe, she has not tried anything to alleviate her symptoms prior to arrival. Her right upper and right lower extremities are unaffected and she denies any cocaine use recently. PFSH Past Medical History Arthritis: Yes (RHEUMATOID) Asthma: Yes Autoimmune Disease: Yes Blood Disorders: No Anxiety: Yes Cancer: No Cardiovascular Problems: No Cerebrovascular Accident: Yes (TIA) Diabetes: No Diminished Hearing: No Endocrine: No Fibromyalgia: Yes Gastrointestinal Disorders: Yes GERD: Yes Genitourinary: No Headaches: Yes Hepatitis: No Hiatal Hernia: No Hypertension: Yes Immune Disorder: No Implanted Vascular Access Dvce: No Medical other: No Musculoskeletal: Yes (BACK PAIN) Neurologic: Yes (NUMBNESS IN R HAND AND LEG, 2 MINI STROKES) Psychiatric: Yes Reproductive: No Respiratory: Yes (ASTHMA ) Migraines: Yes Thyroid Disease: No PNEUMOCCOCAL Vaccine (Year): 1 ?: Not : 5 Para: 2 Miscarriage: 3 Past Surgical History Abdominal Surgery: No AICD: No Body Medical Devices: NONE Cardiac Surgery: No Section: Yes (X 2) Ear Surgery: No Endocrine Surgery: No Eye Surgery: No Genitourinary Surgery: No Gynecologic Surgery: Yes (2 C SECTION) Joint Replacement: No Neurologic Surgery: No Oral Surgery: No Pacemaker: No Thoracic Surgery: No Other Surgery: Yes (CERVICAL SPINE SURG.) Social History Alcohol Use: No Tobacco Use: Yes (4 CIGS A DAY) Substance Use: No Allergies-Medications (Allergen,Severity, Reaction): Coded Allergies: penicillin G (Unverified Allergy, Severe, HIVES, SOB, 05/28/17) acetaminophen (Unverified Adverse Reaction, Intermediate, Nausea/Vomiting , 05/28/17) cyclobenzaprine (Unverified Adverse Reaction, Intermediate, Itching, ) hydromorphone (Unverified Adverse Reaction, Intermediate, Itching, 05/28/17) propoxyphene (Unverified Adverse Reaction, Intermediate, Nausea/Vomiting, 05/28/17) tramadol (Unverified Adverse Reaction, Intermediate, ITCHING, 05/28/17) *MDRO Multi-Drug Resistant Organism (Verified Adverse Reaction, Unknown, ) 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 Reported Meds & Prescriptions Reported Meds & Active Scripts Active Medrol Dosepak (Methylprednisolone) 4 Mg Dspk 4 Mg PO DIRECTED Per Pharmacist direction Hydrocodone-Acetaminophen 10-325 mg Tab 1 Tab PO Q4H PRN Reported Xanax (Alprazolam) 0.5 Mg Tab 0.5 Mg PO Q4H PRN Aspirin 81 Mg Chew 81 Mg CHEW DAILY Potassium Chloride Liq (Potassium Chloride) 20 Meq/15 Ml Soln 20 Meq PO BID Proventil Hfa 6.7 GM Inh (Albuterol Sulfate) 90 Mcg/Act Aer 1 Puff INH Q4H PRN Soma (Carisoprodol) 250 Mg Tab 250 Mg PO QID PRN [place] (Hydrocodone-Acetaminophen) 7.5-325 mg Tab 1 Tab PO Q4H PRN Duloxetine DR (Duloxetine HCl) 40 Mg Capdr 40 Mg PO DAILY Norvasc (Amlodipine Besylate) 5 Mg Tab 5 Mg PO DAILY Ambien (Zolpidem Tartrate) 5 Mg Tab 5 Mg PO HS PRN Gabapentin 800 Mg Tab 800 Mg PO TID Proair Hfa 8.5 GM Inh (Albuterol Sulfate) 90 Mcg/Act Aer 2 Puff INH Q4-6H PRN 108 mcg/actuation Cymbalta DR (Duloxetine HCl) 60 Mg Capdr 60 Mg PO DAILY Propranolol (Propranolol HCl) 80 Mg Tab 80 Mg PO HS Hydrochlorothiazide 12.5 Mg Cap 12.5 Mg PO DAILY Valsartan 160 Mg Tab 160 Mg PO DAILY Review of Systems Except as stated in HPI: all other systems reviewed are Neg Physical Exam Narrative GENERAL: Well-developed, well-nourished, appears very uncomfortable. SKIN: Focused skin assessment warm/dry. HEAD: Atraumatic. Normocephalic. EYES: Pupils equal and round. No scleral icterus. No injection or drainage. ENT: No nasal bleeding or discharge. Mucous membranes pink and moist. NECK: Trachea midline. No JVD. CARDIOVASCULAR: Regular rate and rhythm. No murmur appreciated. RESPIRATORY: No accessory muscle use. Clear to auscultation. Breath sounds equal bilaterally. GASTROINTESTINAL: Abdomen soft, non-tender, nondistended. Hepatic and splenic margins not palpable. MUSCULOSKELETAL: No obvious deformities. No clubbing. No cyanosis. No edema. NEUROLOGICAL: Awake and alert. Patient is fairly powerful contraction of her left upper extremity flexion at the elbow and at the wrist, she also has flexion at the knee but this is not as powerful contraction. She is able to follow commands in all 4 extremities, when attempting to straighten her leg or her arm she screams in pain. Cranial nerves II through XII grossly intact. Cerebellar testing at the patella is 2+ and equal bilaterally, testing at the left brachial is limited by the contracture, right brachial normal PSYCHIATRIC: Appropriate mood and affect; insight and judgment normal. Data Data Last Documented VS Vital Signs Date Time Temp Pulse Resp B/P (MAP) Pulse Ox O2 Delivery O2 Flow Rate FiO2 06/28/17 12:56 101 18 121/83 (96) 98 Nasal Cannula 2.00 06/28/17 08:28 98.9 Orders Orders Lorazepam Inj (Ativan Inj) (06/28/17 08:30) Electrocardiogram (06/28/17 08:20) Complete Blood Count With Diff (06/28/17 08:20) Comprehensive Metabolic Panel (06/28/17 08:20) Prothrombin Time / Inr (Pt) (06/28/17 08:20) Act Partial Throm Time (Ptt) (06/28/17 08:20) Troponin I (06/28/17 08:20) Thyroid Stimulating Hormone (06/28/17 08:20) Urinalysis - C+S If Indicated (06/28/17 08:20) Chest, Single Ap (06/28/17 08:20) Ct Brain W/O Iv Contrast(Rout) (06/28/17 08:20) Blood Glucose (06/28/17 08:20) Ecg Monitoring (06/28/17 08:20) Iv Access Insert/Monitor (06/28/17 08:20) Oximetry (06/28/17 08:20) Sodium Chloride 0.9% Flush (Ns Flush) (06/28/17 08:30) Sodium Chlor 0.9% 1000 Ml Inj (Ns 1000 M (06/28/17 08:20) Drug Screen, Random Urine (06/28/17 08:20) Alcohol (Ethanol) (06/28/17 08:20) Ct Cerv Spine W/O Contrast (06/28/17 ) Diphenhydramine Inj (Benadryl Inj) (06/28/17 08:30) Hydromorphone Pf Inj (Dilaudid Pf Inj) (06/28/17 08:45) Diazepam (Valium) (06/28/17 09:45) Cta Thor Abd Aorta W Iv C W3d (06/28/17 ) Urine Culture (06/28/17 09:00) Mri C Spine W&W/O Contrast (06/28/17 ) Iohexol 350 Inj (Omnipaque 350 Inj) (06/28/17 08:20) Diazepam (Valium) (06/28/17 11:45) Hydromorphone Pf Inj (Dilaudid Pf Inj) (06/28/17 11:45) Mri Brain W&W/O Contrast (06/28/17 ) Consult Neurology (06/28/17 ) (Hub Use Only)Inp Phy Cons/Ref (06/28/17 ) Lorazepam Inj (Ativan Inj) (06/28/17 15:30) Gadodiamide Pf Inj (Omniscan Pf Inj) (06/28/17 08:20) Admit Order (Ed Use Only) (06/28/17 ) Labs Laboratory Tests Test 06/28/17 08:30 06/28/17 09:00 White Blood Count 16.3 TH/MM3 Red Blood Count 5.01 MIL/MM3 Hemoglobin 14.0 GM/DL Hematocrit 41.1 % Mean Corpuscular Volume 82.1 FL Mean Corpuscular Hemoglobin 27.9 PG Mean Corpuscular Hemoglobin Concent 34.0 % Red Cell Distribution Width 14.7 % Platelet Count 352 TH/MM3 Mean Platelet Volume 7.7 FL Neutrophils (%) (Auto) 54.2 % Lymphocytes (%) (Auto) 38.2 % Monocytes (%) (Auto) 5.6 % Eosinophils (%) (Auto) 1.2 % Basophils (%) (Auto) 0.8 % Neutrophils # (Auto) 8.8 TH/MM3 Lymphocytes # (Auto) 6.2 TH/MM3 Monocytes # (Auto) 0.9 TH/MM3 Eosinophils # (Auto) 0.2 TH/MM3 Basophils # (Auto) 0.1 TH/MM3 CBC Comment AUTO DIFF Differential Total Cells Counted 100 Neutrophils % (Manual) 55 % Lymphocytes % 38 % Monocytes % 3 % Eosinophils % 3 % Basophils % 1 % Neutrophils # (Manual) 9.0 TH/MM3 Differential Comment FINAL DIFF MANUAL Platelet Estimate NORMAL Platelet Morphology Comment NORMAL Prothrombin Time 10.4 SEC Prothromb Time International Ratio 1.0 RATIO Activated Partial Thromboplast Time 26.5 SEC Blood Urea Nitrogen 11 MG/DL Creatinine 0.91 MG/DL Random Glucose 86 MG/DL Total Protein 8.5 GM/DL Albumin 4.4 GM/DL Calcium Level 10.0 MG/DL Alkaline Phosphatase 125 U/L Aspartate Amino Transf (AST/SGOT) 25 U/L Alanine Aminotransferase (ALT/SGPT) 28 U/L Total Bilirubin 0.4 MG/DL Sodium Level 139 MEQ/L Potassium Level 3.0 MEQ/L Chloride Level 97 MEQ/L Carbon Dioxide Level 28.2 MEQ/L Anion Gap 14 MEQ/L Estimat Glomerular Filtration Rate 79 ML/MIN Troponin I LESS THAN 0.02 NG/ML Thyroid Stimulating Hormone 3rd Gen 0.832 uIU/ML Ethyl Alcohol Level 81 MG/DL Urine Color YELLOW Urine Turbidity CLEAR Urine pH 6.5 Urine Specific [place] 1.016 Urine Protein TRACE mg/dL Urine Glucose (UA) NEG mg/dL Urine Ketones TRACE mg/dL Urine Occult Blood NEG Urine Nitrite NEG Urine Bilirubin NEG Urine Urobilinogen LESS THAN 2.0 MG/DL Urine Leukocyte Esterase MOD Urine RBC 1 /hpf Urine WBC 16 /hpf Urine WBC Clumps FEW Urine Squamous Epithelial Cells 2 /hpf Urine Bacteria FEW /hpf Urine Mucus FEW /lpf Microscopic Urinalysis Comment CATH-CULTURE IND Urine Opiates Screen NEG Urine Barbiturates Screen NEG Urine Amphetamines Screen NEG Urine Benzodiazepines Screen POS Urine Cocaine Screen POS Urine Cannabinoids Screen NEG MDM Medical Decision Making Medical Screen Exam Complete: Yes Emergency Medical Condition: Yes Differential Diagnosis Acute CVA highly unlikely, cervical radiculopathy, spinal cord compression, anxiety, muscle contracture. Narrative Course Patient initially discussed with follow-up, I do not think that her symptoms meet criteria for a stroke alert as I do not think they are being caused by an acute ischemic or hemorrhagic event. A spinal cord compression in theory could lead to some spasm of the left upper extremity. She has a history of a cervical spine fusion in the past, CT head and C-spine were negative, MRI of the head and C-spine has been ordered, the patient has not had any chest pain but it is possible that she is having the severe contracture pains from a dissection a CTA of her chest was negative. Labs were reassuring except for cocaine positive urine. The MRI results are abnormal but are stable: Last 24 hours Impressions Chest X-Ray 06/28/17819 Signed Impressions: Service Date/Time: June 08:32 - CONCLUSION: No acute disease. No significant change has occurred. Henry Moore MD Cervical Spine MRI 06/28/17 Signed Impressions: Service Date/Time: June 11:50 - CONCLUSION: 1. Some bony edema and enhancement throughout the C6 vertebral body and the anterosuperior endplate of C7. Findings could represent bony contusion. Is there a recent history of trauma? No obvious fracture line. 2. Anterior fixation at C4-5 with straightening of the normal lordotic curvature. 3. Right-sided facet hypertrophy at C3-4 with encroachment on the right neural foramina. However, I believe the spinal canal and neural foramina are adequate at this and all remaining cervical levels. Luís Miller MD Cervical Spine CT 06/28/17 Signed Impressions: Service Date/Time: June 08:36 - CONCLUSION: 1. No acute bony fracture. 2. Anterior cervical fusion at C4-5 3. Primary degenerative changes with disc space narrowing at C6-7 Henry Moore MD Brain MRI 06/28/17 Signed Impressions: Service Date/Time: June 11:50 - CONCLUSION: 1. Scattered punctate hemosiderin deposits characteristic of micro-bleeds with associated T2 hyperintense foci throughout a white matter which is most characteristic of hypertensive encephalopathy. 2. Prominent hemosiderin deposit in the left basal ganglia characteristic of a remote hemorrhage. 3. No evidence of acute infarct , hemorrhage, mass effect, edema or enhancing lesions.. Rodolfo Baker MD Aorta CTA 06/28/17 Signed Impressions: Service Date/Time: June 11:04 - CONCLUSION: 1. Mildly ectatic ascending thoracic aorta measuring up to 3.5 cm. Otherwise, the aorta is non-aneurysmal without evidence for dissection or flow-limiting stenosis. 2. Patent proximal visceral arteries. 3. The pulmonary arteries are visualized to the very proximal segmental level without evidence for pulmonary artery embolism. More distal PE cannot be evaluated on this exam. 4. Minimal right lung base atelectasis. 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 Sellers who will admit the patient. Dr. Barrera has been consulted officially as wel. Patient has multiple doses of IV Dilaudid, IV Ativan, Versed p.o., IV Benadryl Diagnosis Primary Impression: Contracture of muscle, left upper arm Additional Impression: Intractable pain Admitting Information Admitting Physician Requests: Observation Condition: Fair Evan Mauricio MD Jun 28, 2017 10:20
[2017-06-28 10:21] LABS: BACTERIA, URINE FEW /hpf; BILIRUBIN, URINE NEG (NEG); BLOOD, URINE NEG (NEG); GLUCOSE,URINE NEG (NEG); KETONE, URINE TRACE mg/dL (NEG); MUCUS URINE FEW /lpf (OCC); NITRITE,URINE NEG (NEG); PH, URINE 6.5 (5.0-8.5); SQUAMOUS EPITHELIAL CELL URINE 2 /hpf (0-5); URINE COLOR YELLOW (YELLW/STRAW); URINE LEUKOCYTE ESTERASE MOD (NEG); WHITE BLOOD CELL CLUMPS FEW
--- NOTE | 2017-06-28 12:09 | RADRPT ---
EXAM DATE/TIME: 06/28/2017 11:04 [facility] COMPARISON: No previous studies available for comparison. INDICATIONS : Left arm and leg contractures, shortness of breath. IV CONTRAST: 96 cc Omnipaque 350 (iohexol) IV RADIATION DOSE: 9.33 CTDIvol (mGy) MEDICAL HISTORY : Stroke. Hypertension. Asthma. SURGICAL HISTORY : None. ENCOUNTER: Initial ACUITY: 1 day PAIN SCALE: 0/10 LOCATION: cranial TECHNIQUE: Volumetric scanning was performed using a multi-row detector CT scanner. The data was post processed with a variety of visualization algorithms including full volume maximum intensity projection, multi -planar sliding thin slab reformation, curved planar reformation, and surface rendering techniques. Using automated exposure control and adjustment of the mA and/or kV according to patient size, radiat ion dose was kept as low as reasonably achievable to obtain optimal diagnostic quality images. DICOM format image data is available electronically for review and comparison. FINDINGS: LUNGS: Minimal groundglass opacities at the right lung base likely reflecting atelectasis. Otherwise, lungs are clear. No pleural effusion or pneumothorax. MEDIASTINUM: No abnormally enlarged lymph nodes by CT criteria. No axillary or hilar abnormalities are identified. The central pulmonary arteries are patent without evidence for intraluminal filling defect to the ce ntral segmental level. ABDOMEN: Diffusely decreased hepatic attenuation without evidence for volume loss or intrahepatic ductal dilat ation. The liver and spleen are free of focal defects. The gallbladder and pancreas demonstrate no ab normality. Densely calcified left adrenal mass likely reflecting sequela of prior hemorrhage. The kid neys demonstrate no evidence of solid renal mass or hydronephrosis. Bowel appears grossly unremarkabl e. The appendix is visualized and normal in appearance. No free fluid or abdominal masses are identif ied. No para-aortic adenopathy is seen. PELVIS: No evidence of free fluid or pelvic mass. No abnormally enlarged inguinal or retroperitoneal lymph no david are present. The bladder is unremarkable. THORACIC AORTA: Ascending thoracic aorta is mildly ectatic measuring up to 3.5 cm. There is a bovine type 2 vessel ar ch anatomy. Origin of the arch vessels are patent. There is no evidence of aneurysm or dissection. ABDOMINAL AORTA: The aorta is normal in caliber without aneurysm or dissection. Minimal atherosclerotic calcification s in the distal aorta. The renal arteries are patent bilaterally. There is sharp angulation of the c eliac origin which is otherwise patent. SMA and BELEM are patent. PELVIC VESSELS: Mild calcified plaque in the origin of the common iliac arteries without flow-limiting stenosis. The internal iliac and external iliac vessels are patent without aneurysm or dissection. CONCLUSION: 1. Mildly ectatic ascending thoracic aorta measuring up to 3.5 cm. Otherwise, the aorta is non-aneury smal without evidence for dissection or flow-limiting stenosis. 2. Patent proximal visceral arteries. 3. The pulmonary arteries are visualized to the very proximal segmental level without evidence for pu lmonary artery embolism. More distal PE cannot be evaluated on this exam. 4. Minimal right lung base atelectasis. Kwabena Hanna MD on June 28, 2017 at 11:37 Board Certified Radiologist. This report was verified electronically.
--- NOTE | 2017-06-28 12:59 | RADRPT ---
EXAM DATE/TIME: 06/28/2017 11:50 [facility] COMPARISON: No previous studies available for comparison. INDICATIONS : Left upper/lower extremity contractor. CONTRAST: 16 cc Omniscan (gadodiamide) IV MEDICAL HISTORY : Hypertension. SURGICAL HISTORY : section. Fusion, cervical. ENCOUNTER: Subsequent ACUITY: 3 day PAIN SCORE: 0/10 LOCATION: cranial TECHNIQUE: Multiplanar, multisequence MRI of the brain was performed both prior to and following the administrat ion of paramagnetic contrast. FINDINGS: CEREBRUM: The ventricles are normal for age. Punctate hemosiderin deposits are identified throughout the basal ganglia. A larger area of magnetic susceptibility within the left basal ganglia involving the head of the caudate nucleus and anterior limb of the internal capsule measuring almost 2 cm is noted. A few scattered punctate hemosiderin deposits are identified in the brainstem cerebellar hemispheres and ce rebral hemispheres. No evidence of midline shift, mass lesion, acute hemorrhage or acute infarction. No extraaxial fluid collections are seen. The pituitary gland and suprasellar cistern are normal in configuration . WHITE MATTER: Scattered T2 hyper intense foci are seen throughout this rib white matter involving both the perivent ricular deep white matter and subcortical white matter tracts. POSTERIOR FOSSA: The cerebellum and brainstem are intact. The 4th ventricle is midline. The cerebellopontine angle is unremarkable. The cerebellar tonsils are normal in position. DIFFUSION IMAGING: No focal areas of restricted diffusion are seen. No evidence of acute infarction. EXTRACRANIAL: The visualized portions of the orbits and paranasal sinuses are unremarkable. POST-CONTRAST: No abnormal areas of parenchymal or dural enhancement. No evidence of blood-brain barrier breakdown. CONCLUSION: 1. Scattered punctate hemosiderin deposits characteristic of micro-bleeds with associated T2 hyperint ense foci throughout a white matter which is most characteristic of hypertensive encephalopathy. 2. Prominent hemosiderin deposit in the left basal ganglia characteristic of a remote hemorrhage. 3. No evidence of acute infarct, hemorrhage, mass effect, edema or enhancing lesions.. Rodolfo Baker MD on June 28, 2017 at 12:50 Board Certified Radiologist. This report was verified electronically.
--- NOTE | 2017-06-28 13:34 | RADRPT ---
EXAM DATE/TIME: 06/28/2017 11:50 [facility] COMPARISON: No previous studies available for comparison. INDICATIONS : Left upper/lower extremity contractor CONTRAST: 16 cc Omniscan (gadodiamide) IV MEDICAL HISTORY : Hypertension. SURGICAL HISTORY : section. Fusion, cervical. ENCOUNTER: Subsequent ACUITY: 3 day PAIN SCORE: 0/10 LOCATION: neck TECHNIQUE: Multiplanar, multisequence MRI examination of the cervical spine was performed. FINDINGS: Sagittal T1 pre-and postcontrast, T2 and inversion recovery images show straightening of the normal l ordotic curvature with anterior fixation at C4-5. Bony edema is identified in the C6 vertebral body i n the very superior endplate of C7. Both areas show regional enhancement. Cord signal is normal throu ghout. Spinal canal is adequate without cord compromise. Posterior fossa is radiographically normal C2-C3: The thecal sac has a normal configuration. There is no evidence of disc herniation or spinal canal stenosis. The neural foramina are patent bilaterally. C3-C4: Right-sided facet hypertrophy. Some encroachment on the right neural foramina but I believe the spina l canal and neural foramina remain adequate C4-C5: Anteriorly fixated level. Spinal canal and neural foramina are patent C5-C6: The thecal sac has a normal configuration. There is no evidence of disc herniation or spinal canal s tenosis. The neural foramina are patent bilaterally. C6-C7: The thecal sac has a normal configuration. There is no evidence of disc herniation or spinal canal s tenosis. The neural foramina are patent bilaterally. C7-T1: The thecal sac has a normal configuration. There is no evidence of disc herniation or spinal canal s tenosis. The neural foramina are patent bilaterally. CONCLUSION: 1. Some bony edema and enhancement throughout the C6 vertebral body and the anterosuperior endplate o f C7. Findings could represent bony contusion. Is there a recent history of trauma? No obvious fractu re line. 2. Anterior fixation at C4-5 with straightening of the normal lordotic curvature. 3. Right-sided facet hypertrophy at C3-4 with encroachment on the right neural foramina. However, I b elieve the spinal canal and neural foramina are adequate at this and all remaining cervical levels. Luís Miller MD on June 28, 2017 at 13:26 Board Certified Radiologist. This report was verified electronically.
--- NOTE | 2017-06-28 13:42 | EKG ---
Date Performed: 06/28/2017 Time Performed: 08:50:38 PTAGE: 52 years EKG: SINUS TACHYCARDIA POSSIBLE INFERIOR MYOCARDIAL INFARCTION ABNORMAL ECG PREVIOUS TRACING : 06/22/2016 12.30 Compared to previous tracing, heart rate has increased. DOCTOR: Dar Schumacher Interpretating Date/Time 06/28/2017 13:40:18
[2017-06-28] MEDS ORDERED: NALOXONE HCL 0.4 MG/ML AMP IV PUSH PRN (16:30)
[2017-06-28] MEDS ORDERED: POTASSIUM CHLORIDE 20 MEQ CONTROLLED RELEASE TAB PO ONE ×2 (16:30→18:45)
--- NOTE | 2017-06-28 18:24 | HHI.HP ---
HPI Service [facility] Primary Care Physician Non-Staff Admission Diagnosis Left upper extremity contracture and intractible pain. Diagnoses: Travel History International Travel<30 Days: No Contact w/Intl Traveler <30 Da: No Traveled to Known Affected Are: No History of Present Illness History from patient with her fianc at the bedside. Patient reported that at around 8:30 AM today, she felt her left arm was locking up and left lower extremity was locking up. She states her fingers were also curled and locked. She was worried about CVA because she had history of TIAs and therefore she called her fianc who came and drove her to the hospital. Patient reports a prior history of Sjogren's syndrome/fibromyalgia/rheumatoid arthritis. She reports that she is seeing a primary care doctor in [place] but she now lives in [facility]. On review of system, she denies most symptoms except for occasional burning on urination. It is worth noting that patient was eating her dinner with her fianc upon my arrival using her both hands. Soon as the conversation started, her left upper extremity is in a flexed position and patient reports of pain and cramping. During the conversation, her left upper extremity will go back to normal position rather than flexed position to her chest. She reports that she has prior history of IV cocaine use but she has been clean. When confronted that her urine toxicology was positive, she reports she did go to a green party last night and snorted some cocaine. She reports she is very compliant with her medications. In fact, she is able to recall the names and doses of her medications to me. Review of Systems Except as stated in HPI: all other systems reviewed are Neg Past Family Social History Past Medical History RA Sjorgens HTN Fibromyalgia Asthma Kidney infection from urine infection TIAx 2 Past Surgical History spinal neck surgery for fusion sx c section x 2 Allergies: Coded Allergies: penicillin G (Unverified Allergy, Severe, HIVES, SOB, 05/28/17) acetaminophen (Unverified Adverse Reaction, Intermediate, Nausea/Vomiting , 05/28/17) cyclobenzaprine (Unverified Adverse Reaction, Intermediate, Itching, ) hydromorphone (Unverified Adverse Reaction, Intermediate, Itching, 05/28/17) propoxyphene (Unverified Adverse Reaction, Intermediate, Nausea/Vomiting, 05/28/17) tramadol (Unverified Adverse Reaction, Intermediate, ITCHING, 05/28/17) *MDRO Multi-Drug Resistant Organism (Verified Adverse Reaction, Unknown, ) 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 Family History heart problems, chf, kidney problems, copd , htn --- in most of family members lupus in some Social History half a pack a day smoker no etoh abuse used to use IV cocaine >25yrs ago did have a sniff of cocaine at a green party last night Physical Exam Vital Signs Vital Signs Date Time Temp Pulse Resp B/P (MAP) Pulse Ox O2 Delivery O2 Flow Rate FiO2 06/28/17 18:11 98.2 92 20 121/72 (88) 99 06/28/17 12:56 101 18 121/83 (96) 98 Nasal Cannula 2.00 06/28/17 10:20 98 18 101/81 (88) 98 Room Air 06/28/17 09:12 101 18 119/79 (92) 99 Room Air 06/28/17 09:08 92 18 99 Nasal Cannula 2.00 06/28/17 08:56 18 100 Nasal Cannula 2.00 06/28/17 08:28 98.9 112 18 124/86 (99) 98 Room Air Physical Exam GENERAL: This is a well-nourished, well-developed patient,. Looks somewhat anxious. Pleasant. SKIN: No rashes, ecchymoses or lesions. Cool and dry. Blinks constantly during the interview HEAD: Atraumatic. Normocephalic. No temporal or scalp tenderness. EYES: Blinks quite opaque during. No scleral icterus. No injection or drainage. ENT: Nose without bleeding, purulent drainage or septal hematoma. Airway patent. NECK: Trachea midline. No JVD . Supple, nontender, no meningeal signs. CARDIOVASCULAR: Regular rate and rhythm without murmurs, gallops, or rubs. RESPIRATORY: Clear to auscultation. Breath sounds equal bilaterally. No wheezes , rales, or rhonchi. GASTROINTESTINAL: Abdomen soft, non-tender, nondistended. No guarding. MUSCULOSKELETAL: Extremities without clubbing, cyanosis, or edema. No calf tenderness. NEUROLOGICAL: Awake and alert. Cranial nerves II through XII intact. Normal speech. Patient has her left upper extremity flexed on exam. When distracted during conversation, she was able to place her left upper extremity back to normal relaxed position. Laboratory Laboratory Tests Test 06/28/17 08:30 06/28/17 09:00 White Blood Count 16.3 Red Blood Count 5.01 Hemoglobin 14.0 Hematocrit 41.1 Mean Corpuscular Volume 82.1 Mean Corpuscular Hemoglobin 27.9 Mean Corpuscular Hemoglobin Concent 34.0 Red Cell Distribution Width 14.7 Platelet Count 352 Mean Platelet Volume 7.7 Neutrophils (%) (Auto) 54.2 Lymphocytes (%) (Auto) 38.2 Monocytes (%) (Auto) 5.6 Eosinophils (%) (Auto) 1.2 Basophils (%) (Auto) 0.8 Neutrophils # (Auto) 8.8 Lymphocytes # (Auto) 6.2 Monocytes # (Auto) 0.9 Eosinophils # (Auto) 0.2 Basophils # (Auto) 0.1 CBC Comment AUTO DIFF Differential Total Cells Counted 100 Neutrophils % (Manual) 55 Lymphocytes % 38 Monocytes % 3 Eosinophils % 3 Basophils % 1 Neutrophils # (Manual) 9.0 Differential Comment FINAL DIFF MANUAL Platelet Estimate NORMAL Platelet Morphology Comment NORMAL Prothrombin Time 10.4 Prothromb Time International Ratio 1.0 Activated Partial Thromboplast Time 26.5 Blood Urea Nitrogen 11 Creatinine 0.91 Random Glucose 86 Total Protein 8.5 Albumin 4.4 Calcium Level 10.0 Alkaline Phosphatase 125 Aspartate Amino Transf (AST/SGOT) 25 Alanine Aminotransferase (ALT/SGPT) 28 Total Bilirubin 0.4 Sodium Level 139 Potassium Level 3.0 Chloride Level 97 Carbon Dioxide Level 28.2 Anion Gap 14 Estimat Glomerular Filtration Rate 79 Troponin I LESS THAN 0.02 Thyroid Stimulating Hormone 3rd Gen 0.832 Ethyl Alcohol Level 81 Urine Color YELLOW Urine Turbidity CLEAR Urine pH 6.5 Urine Specific [place] 1.016 Urine Protein TRACE Urine Glucose (UA) NEG Urine Ketones TRACE Urine Occult Blood NEG Urine Nitrite NEG Urine Bilirubin NEG Urine Urobilinogen LESS THAN 2.0 Urine Leukocyte Esterase MOD Urine RBC 1 Urine WBC 16 Urine WBC Clumps FEW Urine Squamous Epithelial Cells 2 Urine Bacteria FEW Urine Mucus FEW Microscopic Urinalysis Comment CATH-CULTURE IND Urine Opiates Screen NEG Urine Barbiturates Screen NEG Urine Amphetamines Screen NEG Urine Benzodiazepines Screen POS Urine Cocaine Screen POS Urine Cannabinoids Screen NEG Date/Time Source Procedure Growth Status 06/28/17 09:00 Urine Catheterized Urine Urine Culture Pending Received Result Diagram: 06/28/1782906/28/17829 Imaging Last [address] 06/28/17819 Signed Impressions: Service Date/Time: June 08:36 - CONCLUSION: 1. Encephalomalacia about the left frontal horn, stable from 2011. 2. Ill-defined hyperdensity in the left CP angle suggesting the possibility of a mass. After the CT scan, the patient subsequently underwent MRI scanning with and without contrast and there is a normal configuration to the brainstem and no evidence of mass in the left CP angle. This suggests that the finding on the CT is artifactual.. Luis E Reyes MD Chest X-Ray 06/28/17819 Signed Impressions: Service Date/Time: June 08:32 - CONCLUSION: No acute disease. No significant change has occurred. Henry Moore MD Cervical Spine MRI 06/28/17 0000 Signed Impressions: Service Date/Time: June 11:50 - CONCLUSION: 1. Some bony edema and enhancement throughout the C6 vertebral body and the anterosuperior endplate of C7. Findings could represent bony contusion. Is there a recent history of trauma? No obvious fracture line. 2. Anterior fixation at C4-5 with straightening of the normal lordotic curvature. 3. Right-sided facet hypertrophy at C3-4 with encroachment on the right neural foramina. However, I believe the spinal canal and neural foramina are adequate at this and all remaining cervical levels. Luís Miller MD Cervical Spine CT 06/28/17 0000 Signed Impressions: Service Date/Time: June 08:36 - CONCLUSION: 1. No acute bony fracture. 2. Anterior cervical fusion at C4-5 3. Primary degenerative changes with disc space narrowing at C6-7 Henry Moore MD Brain MRI 06/28/17 0000 Signed Impressions: Service Date/Time: June 11:50 - CONCLUSION: 1. Scattered punctate hemosiderin deposits characteristic of micro-bleeds with associated T2 hyperintense foci throughout a white matter which is most characteristic of hypertensive encephalopathy. 2. Prominent hemosiderin deposit in the left basal ganglia characteristic of a remote hemorrhage. 3. No evidence of acute infarct , hemorrhage, mass effect, edema or enhancing lesions.. Rodolfo Baker MD Aorta CTA 06/28/17 0000 Signed Impressions: Service Date/Time: June 11:04 - CONCLUSION: 1. Mildly ectatic ascending thoracic aorta measuring up to 3.5 cm. Otherwise, the aorta is non-aneurysmal without evidence for dissection or flow-limiting stenosis. 2. Patent proximal visceral arteries. 3. The pulmonary arteries are visualized to the very proximal segmental level without evidence for pulmonary artery embolism. More distal PE cannot be evaluated on this exam. 4. Minimal right lung base atelectasis. MD Beck Holt VTE Risk Assessment Caprini VTE Risk Assessment: Mod/High Risk (score >= 2) Caprini Risk Assessment Model Point Value = 1 Point Value = 2 Point Value = 3 Point Value = 5 Age 41-60 Minor surgery BMI > 25 kg/m2 Swollen legs Varicose veins or History of unexplained or recurrent spontaneous Oral contraceptives or hormone replacement Sepsis (< 1 month) Serious lung disease, including pneumonia (< 1 month) Abnormal pulmonary function Acute myocardial infarction Congestive heart failure (< 1 month) History of inflammatory bowel disease Medical patient at bed rest Age 61-74 Arthroscopic surgery Major open surgery (> 45 min) Laparoscopic surgery (> 45 min) Malignancy Confined to bed (> 72 hours) Immobilizing plaster cast Central venous access Age >= 75 History of VTE Family history of VTE Factor V Leiden Prothrombin [id number] Lupus anticoagulant Anticardiolipin antibodies Elevated serum homocysteine Heparin-induced thrombocytopenia Other congenital or acquired thrombophilia Stroke (< 1 month) Elective arthroplasty Hip, pelvis, or leg fracture Acute spinal cord injury (< 1 month) Prophylaxis Regimen Total Risk Factor Score Risk Level Prophylaxis Regimen 0-1 Low Early ambulation 2 Moderate Order ONE of the following: *Sequential Compression Device (SCD) *Heparin 5000 units SQ BID 3-4 Higher Order ONE of the following medications: *Heparin 5000 units SQ TID *Enoxaparin/Lovenox 40 mg SQ daily (WT < 150 kg, CrCl > 30 mL/min) *Enoxaparin/Lovenox 30 mg SQ daily (WT < 150 kg, CrCl > 10-29 mL/min) *Enoxaparin/Lovenox 30 mg SQ BID (WT < 150 kg, CrCl > 30 mL/min) AND/OR *Sequential Compression Device (SCD) 5 or more Highest Order ONE of the following medications: *Heparin 5000 units SQ TID (Preferred with Epidurals) *Enoxaparin/Lovenox 40 mg SQ daily (WT < 150 kg, CrCl > 30 mL/min) *Enoxaparin/Lovenox 30 mg SQ daily (WT < 150 kg, CrCl > 10-29 mL/min) *Enoxaparin/Lovenox 30 mg SQ BID (WT < 150 kg, CrCl > 30 mL/min) AND *Sequential Compression Device (SCD) Assessment and Plan Assessment and Plan Impression: Left upper extremity and left lower extremity contractures/spasms. Likely secondary to hypokalemia Hypokalemia Possible psychosomatic symptoms/family dynamics/pain med/substance abuse Scattered punctate hemosiderin deposits most characteristic of hypertensive encephalopathy on MRI findings Remote left basal ganglia hemorrhage on MRI findings No acute infarct/hemorrhage/mass-effect/edema/enhancing mass C6 vertebral body and anterior superior C7 endplate edema and enhancement. Possible recent trauma. None acute. Plan: Neuro checks. Neurology was consulted. We will follow recommendations. Neurology has started patient on steroids. Continue home dose of [place]. We will not increase pain medications. Resume rest of her home medications. Potassium 40 mEq p.o. was given. Give another additional 40 M EQ now Patient and fianc were explained that patient's symptoms are most consistent with hypokalemia induced muscle spasms. Her MRI findings are also suggestive of long-standing uncontrolled hypertension versus cocaine related bleeds though nothing acute. DVT prophylaxis with ambulation. Discussed Condition With Patient ,ER physician Ria Liu MD Jun 28, 2017 18:24
[2017-06-28] MEDS ORDERED: RESP: ALBUTEROL 2.5 MG/IPRATROPIUM 0.5 MG NEB (PRN) NEB (18:30)
[2017-06-28] MEDS ORDERED: ALPRAZolam 0.5 MG TAB PO PRN (18:30)
[2017-06-28] MEDS ORDERED: ZOLPIDEM TARTRATE 5 MG TAB PO PRN (18:30)
--- NOTE | 2017-06-28 19:47 | RADRPT ---
EXAM DATE/TIME: 06/28/2017 08:36 [facility] COMPARISON: MRI BRAIN W & W/O CONTRAST, June 28, 2017, 11:50. MRI CERVICAL SPINE W & W/O CONTRAST, June 28 018, 11:50. CT BRAIN W/O CONTRAST, March 09, 2012, 12:52. INDICATIONS : Altered mental status. RADIATION DOSE: 51.41 CTDIvol (mGy) MEDICAL HISTORY : Cerebrovascular disease. Hypertension. SURGICAL HISTORY : None. ENCOUNTER: Initial ACUITY: 1 day PAIN SCALE: 7/10 LOCATION: Left arm TECHNIQUE: Multiple contiguous axial images were obtained of the head. Using automated exposure control and adj ustment of the mA and/or kV according to patient size, radiation dose was kept as low as reasonably a chievable to obtain optimal diagnostic quality images. DICOM format image data is available electro nically for review and comparison. FINDINGS: The patient had a prior CT brain in 2012 and attempts were made to the archive the prior study; these attempts were unsuccessful. This study is being interpreted at this time due to time lapse, but wit hout the benefit of [address] from 2011 is available. There is moderate image de gradation of the low and mid convexity images due to patient motion. There is also tenting of the he ad in the gantry creating asymmetries. CEREBRUM: There is a focal area of encephalomalacia about the left frontal horn with some mild extra-axial enla rgement of the frontal horn. This has a similar appearance to prior CT in 2012. There is very good do-white matter differentiation. No evidence of acute blood products or mass effect. POSTERIOR FOSSA: There is loss of delineation of the CSF in the left cerebellopontine angle and suggestion of a high d ensity area which measures 2.2 x 1.7 cm. The possibility of a mass is suspected, but this could also be due to the asymmetric enhancing of the head in the gantry. The 4th ventricle is in the midline. EXTRACRANIAL: The visualized portion of the orbits is intact. SKULL: The calvaria is intact. No evidence of skull fracture. CONCLUSION: 1. Encephalomalacia about the left frontal horn, stable from 2011. 2. Ill-defined hyperdensity in the left CP angle suggesting the possibility of a mass. After the CT scan, the patient subsequently underwent MRI scanning with and without contrast and there is a normal configuration to the brainstem and no evidence of mass in the left CP angle. This suggests that the finding on the CT is artifactual.. Luis E Reyes MD on June 28, 2017 at 19:37 Board Certified Radiologist. This report was verified electronically.
--- NOTE | 2017-06-28 19:53 | MB ---
cc: Garima Barrera MD DATE OF CONSULT: 06/28/2017 REASON FOR CONSULTATION: Spasming of the left upper and lower extremity and pain, in a 52-year-old woman. She states her symptoms started today earlier, with no injury, feels like there is a spasm, a charley horse. She denies any new medications, denies any antipsychotics. She stated that she used cocaine yesterday. She was clean for 4 years and started using it yesterday. She had no loss of consciousness, no loss of awareness, no seizure-like activity reported. PAST MEDICAL HISTORY: Per chart, rheumatoid arthritis, asthma, anxiety, TIA, fibromyalgia, hypertension, chronic back pain. PAST SURGICAL HISTORY: She has had cervical spine surgery in the past. SOCIAL HISTORY: She still smokes, admits to using cocaine. ALLERGIES: PENICILLIN, TYLENOL, CYCLOBENZAPRINE, HYDROMORPHONE, PROPOXYPHENE, TRAMADOL. MDRO MRSA screen positive 08/11/2016. CURRENT ACTIVE MEDICATIONS: Xanax, baby aspirin, potassium, Proventil, Soma, [place], Norvasc, Ambien, ProAir, Cymbalta, propranolol, hydrochlorothiazide, valsartan. PHYSICAL EXAMINATION: VITAL SIGNS: Temperature is 98.9, heart rate 101, respiratory rate 18, blood pressure 121/83. NECK: Supple. There are no bruits. She has a scar from a cervical spine surgery from years ago. Full range of motion of her neck. She has some tenderness over her trapezius on the left going down into her shoulder. NEUROLOGIC: Pupils are reactive. Face symmetrical. Normal speech. She has pain when I attempt to straighten out her arm or leg. She keeps it flexed. Tone is increased but I think partly it is from her also maintaining it contracted. If I try open her elbow up or her leg, she does scream. Reflexes are difficulty to elicit on the left side but I do not find it grossly brisk. There may be a mild Mahad on the left. Toes are downgoing. Gait cannot be assessed. LABORATORY STUDIES: Reviewed. White count 16.3. Card panel is normal. Chemistries: Potassium is 3, calcium is normal. Toxicology is positive for benzos and cocaine. Ethanol level is 81. Urine moderate leukocyte esterase, 16 white cells, cultures pending. IMAGING STUDIES: Chest x-ray: No acute pathology. CT of the aorta: Ectatic ascending thoracic measuring 3.5 cm, no aneurysm. Brain MRI shows scattered hemosiderin deposits characteristic of micro bleeds associated with T2 hyperintense foci throughout the white matter. Prominent hemosiderin characteristic of hypertensive encephalopathy, also prominent hemosiderin deposit left basal ganglia characteristic of remote hemorrhage, no acute infarct mass lesions. MRI C-spine shows bony edema and enhancement throughout the C6 vertebral body. Anterior superior endplate of C7 could be a bony contusion; however, the patient does not admit to any trauma when asked. No fracture seen. Anterior fixation C4-C5 with straightening of the normal lordotic curvature, right sided facet hypertrophy at C3-C4 seen but the radiologist does believe that the spinal canal foramina are adequate. She did have a CT of the spine. It did not show any fractures. It showed anterior cervical fusion C4-C5. IMPRESSION AND PLAN: Spasms left upper, lower extremity. Etiology is unknown. She denies any new medications. She is on quite a few medications but nothing that would cause any type of symptomatology such as this. I am going to put her on Solu-Medrol 500 mg IV x 1 and put her on Valium 5 mg twice a day. She is on quite a bit of medication already. I will make sure that her potassium is replenished appropriately. If stable, can be discharged later today. MD KEVEN Bolanos/KENA , 06:00 PM , 07:51 PM
[2017-06-28] MEDS ORDERED: methylPREDNISolone SO SUCC INJ 500 MG in DEXTROSE 5% IN WATER 100ML INJ 100 ML IV ONE ×2 (20:00)
[2017-06-28] MEDS ORDERED: CARISOPRODOL 250 MG PO PRN (20:15)
[2017-06-28] MEDS: DIAZEPAM 5 MG TAB PO SCH (21:58)
[2017-06-28] MEDS: ACETAMINOPHEN/HYDROcodone 325 MG/7.5 MG TAB PO PRN (21:59)
[2017-06-28] MEDS: SODIUM CHLORIDE 0.9% FLUSH 10 ML FLUSH IV FLUSH SCH (22:52)
[2017-06-29] VITALS (7 sets, daily range): BP systolic 120–132; BP diastolic 60–77; PULSE 82–99; RESP 18–20; TEMP 98–98.2; O2SAT 96–99
[2017-06-29] MEDS: ACETAMINOPHEN/HYDROcodone 325 MG/7.5 MG TAB PO PRN (08:10)
[2017-06-29 08:16] LABS: AUTOMATED NEUTROPHIL # 7.7 TH/MM3 (1.8-7.7); BASOPHIL % 0.2 % (0.0-2.0); HEMATOCRIT 39.5 % (35.0-46.0); HEMOGLOBIN 13.2 GM/DL (11.6-15.3); LYMPH % 9.7 % (9.0-44.0); LYMPHOCYTE # 0.8 TH/MM3 (1.0-4.8); MEAN CORPUSCULAR HEMOGLOBIN 27.8 PG (27.0-34.0); MEAN CORPUSCULAR HGB CONC 33.6 % (32.0-36.0); MONO % 1.4 % (0.0-8.0); MONOCYTE # 0.1 TH/MM3 (0-0.9); NEUT % 88.7 % (16.0-70.0); PLATELET COUNT 320 TH/MM3 (150-450); RED BLOOD COUNT 4.76 MIL/MM3 (4.00-5.30); WHITE BLOOD COUNT 8.7 TH/MM3 (4.0-11.0)
[2017-06-29 08:37] LABS: BICARBONATE 28.9 MEQ/L (21.0-32.0); CALCIUM 9.5 MG/DL (8.5-10.1); CREATININE 0.78 MG/DL (0.50-1.00)
[2017-06-29] MEDS: SODIUM CHLORIDE 0.9% FLUSH 10 ML FLUSH IV FLUSH SCH (08:38)
[2017-06-29] MEDS: DIAZEPAM 5 MG TAB PO SCH (08:38)
[2017-06-29] MEDS ORDERED: ASPIRIN 81 MG CHEW TAB CHEW SCH (09:00)
[2017-06-29] MEDS ORDERED: INFLUENZA VIRUS VACCINE (QUADRIVALENT) 0.5 ML SYR IM ONE (09:00)
[2017-06-29] MEDS ORDERED: DULoxetine HCl DR 60 MG CAP PO SCH (09:00)
[2017-06-29] MEDS ORDERED: VALSARTAN 160 MG TAB PO SCH (09:00)
[2017-06-29] MEDS ORDERED: DIAZ5 PO (11:26)
--- NOTE | 2017-06-29 13:47 | HHI.PR ---
Subjective Remarks Follow-up left upper extremity spasm. States it is improving but still not able to hold anything. Denies neck and left upper extremity pain patient's boyfriend willing to provide 24-hour care. Discussed with nursing Objective Vitals Vital Signs Date Time Temp Pulse Resp B/P (MAP) Pulse Ox O2 Delivery O2 Flow Rate FiO2 06/29/17 12:25 98 2.00 06/29/17 12:14 98.2 90 20 132/60 (84) 98 06/29/17 08:19 98.2 94 18 130/77 (94) 96 06/29/17 05:24 98.0 99 18 130/72 (91) 99 06/29/17 03:55 85 06/29/17 00:38 98.1 82 18 120/73 (89) 98 06/29/17 00:15 18 06/28/17 23:59 82 06/28/17 22:37 98 Nasal Cannula 2.00 06/28/17 20:59 98.0 99 18 129/78 (95) 98 06/28/17 18:11 98.2 92 20 121/72 (88) 99 Result Diagram: 06/29/17 0701 06/29/17 0701 Imaging Last Impressions Head CT 06/28/17819 Signed Impressions: Service Date/Time: June 08:36 - CONCLUSION: 1. Encephalomalacia about the left frontal horn, stable from 2011. 2. Ill-defined hyperdensity in the left CP angle suggesting the possibility of a mass. After the CT scan, the patient subsequently underwent MRI scanning with and without contrast and there is a normal configuration to the brainstem and no evidence of mass in the left CP angle. This suggests that the finding on the CT is artifactual.. Luis E Reyes MD Chest X-Ray 06/28/17819 Signed Impressions: Service Date/Time: June 08:32 - CONCLUSION: No acute disease. No significant change has occurred. Henry Moore MD Cervical Spine MRI 06/28/17 0000 Signed Impressions: Service Date/Time: June 11:50 - CONCLUSION: 1. Some bony edema and enhancement throughout the C6 vertebral body and the anterosuperior endplate of C7. Findings could represent bony contusion. Is there a recent history of trauma? No obvious fracture line. 2. Anterior fixation at C4-5 with straightening of the normal lordotic curvature. 3. Right-sided facet hypertrophy at C3-4 with encroachment on the right neural foramina. However, I believe the spinal canal and neural foramina are adequate at this and all remaining cervical levels. Luís Miller MD Cervical Spine CT 06/28/17 Signed Impressions: Service Date/Time: June 08:36 - CONCLUSION: 1. No acute bony fracture. 2. Anterior cervical fusion at C4-5 3. Primary degenerative changes with disc space narrowing at C6-7 Henry Moore MD Brain MRI 06/28/17 Signed Impressions: Service Date/Time: June 11:50 - CONCLUSION: 1. Scattered punctate hemosiderin deposits characteristic of micro-bleeds with associated T2 hyperintense foci throughout a white matter which is most characteristic of hypertensive encephalopathy. 2. Prominent hemosiderin deposit in the left basal ganglia characteristic of a remote hemorrhage. 3. No evidence of acute infarct , hemorrhage, mass effect, edema or enhancing lesions.. Rodolfo Baker MD Aorta CTA 06/28/17 Signed Impressions: Service Date/Time: June 11:04 - CONCLUSION: 1. Mildly ectatic ascending thoracic aorta measuring up to 3.5 cm. Otherwise, the aorta is non-aneurysmal without evidence for dissection or flow-limiting stenosis. 2. Patent proximal visceral arteries. 3. The pulmonary arteries are visualized to the very proximal segmental level without evidence for pulmonary artery embolism. More distal PE cannot be evaluated on this exam. 4. Minimal right lung base atelectasis. Kwabena Hanna MD Objective Remarks GENERAL: This is a well-nourished, well-developed patient SKIN: No rashes, ecchymoses or lesions. Cool and dry. CARDIOVASCULAR: Regular rate and rhythm without murmurs, gallops, or rubs. RESPIRATORY: Clear to auscultation. Breath sounds equal bilaterally. No wheezes , rales, or rhonchi. GASTROINTESTINAL: Abdomen soft, non-tender, nondistended. No guarding. MUSCULOSKELETAL: Extremities without clubbing, cyanosis, or edema. No calf tenderness. NEUROLOGICAL: Awake and alert. Cranial nerves II through XII intact. Normal speech. Patient has her left hand partially clenched but was able to raise left upper extremity to scratch her left cheek. Patient was able to sit up on her own Procedures none A/P Problem List: (1) LUE spasm Assessment and Plan Left upper extremity and left lower extremity contractures/spasms. Etiology not clear, no recent trauma. This is improving status post steroids, potassium replacement and volume. PT and OT. Fall precautions. Possible psychosomatic symptoms/family dynamics/pain med/substance abuse. Pt counseled. Patient's boyfriend will provide 24 hour supervision Scattered punctate hemosiderin deposits most characteristic of hypertensive encephalopathy on MRI findings. Remote left basal ganglia hemorrhage on MRI findings. No acute infarct/hemorrhage/mass-effect/edema/enhancing mass. Strict BP control C6 vertebral body and anterior superior C7 endplate edema and enhancement. Possible recent trauma. None acute. Denies recent trauma Gram-negative rafael UTI. Ciprofloxacin. Follow-up urine culture Cocaine abuse. Counseled. Multiple medical conditions of RA , Sjorgens, HTN, Fibromyalgia, Asthma and TIAx 2. Continue outpatient medications as appropriate DVT prophylaxis with ambulation. Discharge Planning Discharge patient to home with PT/OT and visiting nurse Condition on discharge: Improved Regular Diet as tolerated Ad Kitty activity no driving Rx written: Valium (counseled regarding benzodiazepine and narcotic use) and Cipro Follow-up with primary care physician and neurology Oziel Weldon MD Jun 29, 2017 13:47
--- NOTE | 2017-06-29 14:02 | HHI.FF ---
Face to Face Verification Diagnosis: (1) Contracture of muscle, left upper arm (2) History of TIA (transient ischemic attack) (3) Fibromyalgia (4) Rheumatoid arthritis (5) Asthma (6) HTN (hypertension) (7) Musculoskeletal pain Physical Therapy Order: Evaluate and Treat, Improve ambulation, Strength and gait training Home Health Nursing Order: Medical education Signs/symptoms of disease process Nursing assessment with vital signs I have seen patient Hannah Arredondo on 06/29/17. My clinical findings support the need for the requested home health care services because: Ltd mobility - disease progression Deconditioned w/ increased weakness Limited ability to care for self High risk of falls I certify that my clinical findings support that this patient is homebound because: Unsteady gait/balance Unsafe to leave home unassisted Angela Milton PA-C Jun 29, 2017 2:02 pm
[2017-06-29] MEDS ORDERED: CIPR250T52 PO (18:35)
== END 2017-06-29 16:01 | disposition home or self-care (01) ==
LOC: NEPC 08:19 → NEDA 16:26 → NEPHCDU 20:35
PROVIDERS: ADMIT Internal Medicine; ATTEND Internal Medicine
DX: M62.422 Contracture of muscle, left upper arm (principal); N39.0 Urinary tract infection, site not specified; B96.89 Other specified bacterial agents as the cause of diseases classified elsewhere; R41.82 Altered mental status, unspecified; E87.6 Hypokalemia; I67.4 Hypertensive encephalopathy; I10 Essential (primary) hypertension; R94.31 Abnormal electrocardiogram [ECG] [EKG]; M35.00 Sjogren syndrome, unspecified; K21.9 Gastro-esophageal reflux disease without esophagitis; F17.210 Nicotine dependence, cigarettes, uncomplicated; F14.10 Cocaine abuse, uncomplicated; M79.7 Fibromyalgia; J45.909 Unspecified asthma, uncomplicated; M06.9 Rheumatoid arthritis, unspecified; J98.11 Atelectasis; I77.810 Thoracic aortic ectasia; Z86.73 Personal history of transient ischemic attack (TIA), and cerebral infarction without residual deficits; Z98.1 Arthrodesis status; Z23 Encounter for immunization
CPT/HCPCS: 70450; 70553; 71045; 71275; 72125; 72156; 74174; 80048; 80053; 80307; 81001; 84443; 84484; 85007; 85025; 85027; 85610; 85730; 87077; 87086; 87186; 90471; 90686; 93005; 96365; 96375; 96376; 97162; 99285; A9579; G0378; G8987; G8988; J1170; J1200; J2060; J2930; J7030; Q9967; G0008; Q2038